=== PATIENT | female | born 1940 | race Two or more races ===

== ENCOUNTER 2017-11-21 17:21 | Inpatient (IN) | payer MEDICARE, OTHER, SELFPAY ==
[2017-11-21] VITALS (10 sets, daily range): BP systolic 123–176; BP diastolic 85–104; PULSE 66–86; RESP 16–19; TEMP 36.6; O2SAT 97–100; BMI 28.1; BMI 31.1
--- NOTE | 2017-11-21 17:30 | CT_ITS ---
STUDY: CT BRAIN WITHOUT CONTRAST REASON FOR EXAM: Female, 77 years old. CVA. Left arm face leg numbness. RADIATION DOSAGE (If Supplied By Facility): CTDIvol = ( 44.99 ) mGy, DLP = ( 745.49 ) mGycm TECHNIQUE: Transaxial CT imaging of the brain was performed without administration of intravenous contrast material. Individualized dose optimization techniques were used for this CT. COMPARISON: None. FINDINGS: Normal soft tissue structures. Normal calvarium. There is mild cerebral atrophy with widening of the extra-axial spaces and ventricular dilatation. There are areas of decreased attenuation within the white matter tracts of the supratentorial brain, consistent with microvascular disease changes. Normal basal ganglia and thalami. Normal brainstem. Normal cerebellum. There is no intracranial hemorrhage. There are no findings of an acute ischemic infarction. Normal visualized paranasal sinuses. CT/Brain/Head without Contrast IMPRESSION: Normal unenhanced CT scan of the brain. Dr. Robbins communicated results to Dr. Riley at 6:04 p.m. N.B. : The above information has been verbally conveyed by Annmarie Robbins MD to Marvin Culver on 11/21/2017 18:04:56 (ET). Electronically Signed: Annmarie Robbins MD at 18:05 EDT Tel , Service support ,
--- NOTE | 2017-11-21 17:30 | EKG12_ITS ---
Test Reason : NEURO Blood Pressure : / mmHG Vent. Rate : 069 BPM Atrial Rate : 069 BPM P-R Int : 154 ms QRS Dur : 082 ms QT Int : 408 ms P-R-T Axes : 008 -19 000 degrees QTc Int : 437 ms Normal sinus rhythm Cannot rule out Anterior infarct , age undetermined Abnormal ECG Confirmed by HENIRETTA GOMEZ, DONNIE ([id number]), magazine editor BEATRIZ JORDAN ([id number]) on 11/23/2017 3:29:52 PM Referred By: BRIANDA Confirmed By:DONNIE SHRESTHA MD
--- NOTE | 2017-11-21 17:32 | RAD_ITS ---
STUDY: X-RAY CHEST REASON FOR EXAM: Female, 77 years old. Headache, numbness. TECHNIQUE: Portable chest. COMPARISON: 03/22/2012. FINDINGS: The lungs are clear and expanded. There is no demonstrated pleural abnormality. There is mild cardiac enlargement. Normal mediastinum and camilo. Normal visualized pulmonary arteries. There is mild atherosclerotic calcification of the aorta. Normal visualized thoracic spine. Normal visualized ribs, clavicles, and shoulders. There is no demonstrated abnormality of the visualized soft tissue structures of the upper abdomen. RAD/Chest 1 View IMPRESSION: Mild cardiac enlargement. No acute process. Electronically Signed: Annmarie Robbins MD at 19:20 EDT Tel , Service support ,
[2017-11-21 17:39] LABS: Absolute Lymphocyte Count 2.05 X10^3/ul (0.83-4.51); Absolute Neutrophil Count 2.5 X10^3/uL (2.0-7.7); Basophil# 0.03 X10^3/uL; Basophil% 0.5 % (0-1); Eosinophil# 0.16 X10^3/uL; Eosinophils% 2.9 % (0-5); Hematocrit 37.1 % (37-47); Hemoglobin 12.3 g/dl (12.0-15.0); Lymphocyte # 2.05 X10^3/ul (4.0); Lymphocyte % 37.5 % (19-41); Mean Corp Hgb Conc 33.2 g/gl (32-36); Mean Corpuscular Hgb 29.4 pg (27.0-32.0); Mean Corpuscular Volume 88.5 fL (81-99); Mean Platelet Vol. 9.6 fl (6.2-12.0); Monocyte# 0.72 X10^3/uL; Monocyte% 13.2 % (0-10); Neutrophil % 45.9 % (47-70); Platelet Count 293 K/mm3 (150-450); RBC Distribution Width CV 13.2 % (11.6-14.6); Red Blood Count 4.19 M/mm3 (4.2-5.4); White Blood Count 5.5 K/mm3 (4.4-11.0)
[2017-11-21 17:45] LABS: Prothrombin Time (Protime)PT. 13.2 SECONDS (11.7-14.9)
[2017-11-21 17:46] LABS: Partial Thromboplast Time 31.2 Seconds (24.1-36.2)
[2017-11-21 17:48] LABS: POSITIVE COUNT NO; POSITIVE DIFFERENTIAL NO; POSITIVE MORPHOLOGY NO
[2017-11-21 17:54] LABS: Anion Gap 10 (5-15); BUN 15 mg/dL (7-18); BUN/Creat Ratio 22.7 RATIO (10-20); Calcium,Total 8.7 mg/dL (8.5-10.1); Chloride 99 mmol/L (98-107); Creatinine, Serum 0.66 mg/dL (0.55-1.02); EST Glomerular Filtration Rate 92 mL/min (>60); Est Glom Filt Rate - Afr Amer 112 mL/min (>60); Estimated Creatinine Clearance 44.58 ml/min; Glucose 109 mg/dL (74-106); Potassium 4.2 mmol/L (3.5-5.1); Sodium Level 135 mmol/L (136-145)
--- NOTE | 2017-11-21 18:50 | ED.DCSUM_ITS ---
- ER Visit Summary Date of Service: 11/21/17 Chief Complaint: Paresthesias History of Present Illness: The patient is a 77 F who presents with paresthesias that began initially 6 days ago. She states she has had some improvement but it worsened today. She complains of numbness of the left face arm and leg. She also developed a headache about an hour prior to presentation today. She took aspirin 1 hour before presentation. She did see her primary care physician 2 days ago and had blood work done and was scheduled for an outpatient MRI. She has not yet had this. She reports hyperlipidemia but no other stroke risk factors. Physical Examination: Initial blood pressure 149/90 vitals otherwise unremarkable Moist mucous membranes Heart regular rate and rhythm Lungs clear Abdomen soft Alert and oriented Patient reports decreased sensation of the left face arm and leg. She has weakness of the left leg. She has ataxia of the left arm. Test Results: EKG shows sinus rhythm. CT the head is normal. Chest x-ray is normal. CBC BMP coagulation studies and troponin unremarkable. Emergency Department Course and Treatment: I am concerned for stuttering TIA and stroke. I do believe the patient should undergo further evaluation. I spoke to neurology who felt that given waxing and waning symptoms that this was unlikely to be stroke. He also recommended having an MRI of the cervical spine done as an inpatient. I spoke to the hospitalist. Patient will be admitted. Treatment Plan: [] Disposition: Admit Impression: Stroke This note was generated with [employer] dictation software. It may contain incorrect words, spelling, and punctuation that were not noted in review of the chart prior to signing ED Disposition - Plan for ED Patient: Chief Complaint: Neuro S/Sx Referrals: Oscar Roberts MD [Primary Care Provider] -
--- NOTE | 2017-11-21 19:14 | CT_ITS ---
STUDY: CTA NECK WITH CONTRAST REASON FOR EXAM: Female, 77 years old. CVA. RADIATION DOSAGE (If Supplied By Facility): CTDIvol = ( 22.44 ) mGy, DLP = ( 726.22 ) mGycm TECHNIQUE: CT angiography with multi-detector data acquisition was performed from the aortic arch to the skull base following intravenous administration of 100 ml of Isovue 370 contrast. MIP images were reconstructed from the axial data set. Post-processing of the angiographic images was performed, with multiplanar reformation and 3D reconstruction. Individualized dose optimization techniques were used for this CT. COMPARISON: None. FINDINGS: AORTIC ARCH: Normal visualized aortic arch. Normal origins of the brachiocephalic and left common carotid arteries. There is a mild stenosis (less than 50%) of the proximal left subclavian artery. This is associated with mild atherosclerotic calcification. RIGHT CAROTID ARTERIES: Normal right common carotid artery (CCA). Normal right common carotid bulb. Normal origin of the right internal carotid (ICA) artery without a hemodynamically significant stenosis. There is tortuous elongation of the cervical portion of the right internal carotid artery. Normal origin of the right external carotid artery (ECA). LEFT CAROTID ARTERIES: Normal left common carotid artery (CCA). Normal left common carotid bulb. Normal origin of the left internal carotid (ICA) artery without a hemodynamically significant stenosis. There is tortuous elongation of the cervical portion of the left internal carotid artery. Normal origin of the left external carotid artery (ECA). VERTEBRAL ARTERIES: Normal bilateral vertebral arteries. CT/CTA Neck W/WO Contrast IMPRESSION: 1. Mild stenosis of the proximal left subclavian artery. 2. Marked tortuosity of the internal carotid arteries bilaterally. Carotid and vertebral arteries are otherwise unremarkable. Electronically Signed: Annmarie Robbins MD at 23:35 EDT Tel , Service support ,
--- NOTE | 2017-11-21 19:14 | CT_ITS ---
STUDY: CTA OF THE BRAIN REASON FOR EXAM: Female, 77 years old. CVA. RADIATION DOSAGE (If Supplied By Facility): CTDIvol = ( 22.44 ) mGy, DLP = ( 726.22 ) mGycm TECHNIQUE: CT angiography was performed with a multi-detector CT scanner. Data acquisition was obtained from the skull base through the vertex following intravenous administration of ml of . MIP images were reconstructed from the axial data set. Post-processing of the angiographic images was performed, with multiplanar reformation and 3D reconstruction. Individualized dose optimization techniques were used for this CT. COMPARISON: None. FINDINGS: Normal bilateral petrous carotid arteries. Normal right cavernous carotid artery with a normal supraclinoid bifurcation. Normal left cavernous carotid artery with a normal supraclinoid bifurcation. Normal right A1 segment of the anterior cerebral artery. Hypoplastic A1 segment of the left anterior cerebral artery. Normal intact anterior communicating artery (ACOM). Normal bilateral A2 segments of the anterior cerebral arteries. Normal right M1 and M2 segments of the middle cerebral arteries, with a normal M1 bifurcation. Normal left M1 and M2 segments of the middle cerebral arteries, with a normal M1 bifurcation. Normal right posterior communicating artery (PCOM). There is non-visualization of the left posterior communicating artery (PCOM). Normal bilateral vertebral arteries. Normal basilar artery with a normal basilar bifurcation. The visualized bilateral superior cerebellar (SCA) arteries are normal. Normal bilateral P1, P2 and visualized P3 segments of the posterior cerebral arteries. There is no demonstrated aneurysm of the [place] of [place]. CT/CTA Head W/WO Contrast IMPRESSION: Normal [place] of [place] without demonstrated aneurysm or significant stenosis. Electronically Signed: Annmarie Robbins MD at 21:40 EDT Tel , Service support ,
--- NOTE | 2017-11-21 19:20 | NURSING ---
Er hot car charger aware pt ok for floor at this time.
--- NOTE | 2017-11-21 19:25 | HP.PCM_ITS ---
Problem List (1) Dyslipidemia Status: Chronic (2) GERD (gastroesophageal reflux disease) Status: Chronic (3) Chronic degenerative joint disease Status: Chronic (4) Chronic allergic rhinitis Status: Chronic History of Present Illness Date of Admission: 11/21/17 Chief Complaint: Left-sided numbness and weakness The patient is a 77 year old F with history of chronic degenerative joint disease but no previous stroke came to ER with left-sided numbness and weakness started on Thursday afternoon. She also noticed weakness on the left side as she walked but she thought because of arthritis. She has weakness of left upper and lower extremity. She denies language abnormality, dysarthria, dysphagia, vision change but has headache mainly on left side. She denies chronic headache but occasionally sometimes get headache. In ED, blood pressure was elevated 166/86. Heart rate 80. normal sinus rhythm at 69 bpm on EKG. []Initial basic labs in the ED are acceptable, glucose 109. Troponin normal CT head normal. Chest x-ray shows mild cardiac enlargement but no acute process. Past Medical History Past Medical History (Chronic Problems): Chronic Problems Dyslipidemia (Chronic) GERD (gastroesophageal reflux disease) (Chronic) Chronic degenerative joint disease (Chronic) Chronic allergic rhinitis (Chronic) Allergies No Known Allergies Allergy (Verified 11/21/17 17:32) Home Medications: Ambulatory Orders Medication Instructions Recorded Celecoxib [Celebrex] 200 mg PO DAILY 11/21/17 Cetirizine HCl [Allergy Relief] 10 mg PO DAILY PRN PRN 11/21/17 Ergocalciferol (Vitamin D2) 50,000 unit PO MO 11/21/17 [Drisdol] Montelukast [Singulair] 10 mg PO QHS 11/21/17 Multivit-Min/Iron/Folic/Lutein 1 each PO DAILY 11/21/17 [Centrum Silver Women Tablet] Nystatin Powder [Mycostatin Powder] 1 applic TOPICAL BID 11/21/17 Omeprazole 40 mg PO DAILY 11/21/17 Silver Sulfadiazine 1% Crm 1 applic TOPICAL DAILY 11/21/17 [Silvadene (BKC)] Simvastatin [Zocor] 40 mg PO QHS 11/21/17 Ubidecarenone [Coenzyme Q10] 300 mg PO DAILY 11/21/17 Surgical History: total knee arthroplasty, Femure fracture Smoking Status: Never smoker VTE Information - Inpt Only VTE Present on Admission: No VTE Mechan Device Prophylaxis: SCD's VTE Pharm Prophylaxis ordered?: Yes Patient Problems: Active and Suspected Problems Stroke (Acute) - Physical Exam Vital Signs Temp Pulse Resp BP Pulse Ox 97.8 F 67 18 164/91 H 97 11/21/17 17:29 11/21/17 19:00 11/21/17 19:00 11/21/17 19:00 11/21/17 19:00 Oxygen Flow Rate (L/min) 2 Oxygen Delivery Method Nasal Cannula Weight: 130 lb 1.164 oz Body Mass Index (BMI) 28.1 Finger Stick Blood Glucose 125 Laboratory Tests Past 24 Hrs 11/21/17 11/21/17 11/21/17 17:30 17:30 17:30 WBC 5.5 RBC 4.19 L Hgb 12.3 Hct 37.1 MCV 88.5 MCH 29.4 MCHC 33.2 RDW 13.2 RDW Differential 42.0 Plt Count 293 MPV 9.6 Immature Gran % (Auto) 0.000 Neut % (Auto) 45.9 L Lymph % (Auto) 37.5 [place] % (Auto) 13.2 H Eos % (Auto) 2.9 Baso % (Auto) 0.5 Absolute Neuts (auto) 2.5 Absolute Lymphs (auto) 2.05 Total Counted Not Reportable PT 13.2 INR 1.0 APTT 31.2 Sodium 135 L Potassium 4.2 Chloride 99 Carbon Dioxide 26.0 Anion Gap 10 BUN 15 Creatinine 0.66 Estim Creat Clear Calc 44.58 Est GFR (MDRD) Af Amer 112 Est GFR (MDRD) Non-Af 92 BUN/Creatinine Ratio 22.7 H Glucose 109 H Calcium 8.7 Troponin I < 0.015 Assessment/Plan All Active Problems Stroke (Acute) The patient is a 77 year old F with history of chronic degenerative joint disease but no previous stroke came to ER with left-sided numbness and weakness started on Thursday afternoon. She also noticed weakness on the left side as she walked but she thought because of arthritis. She has weakness of left upper and lower extremity. She denies language abnormality, dysarthria, dysphagia, vision change but has headache mainly on left side. She denies chronic headache but occasionally sometimes get headache. In ED, blood pressure was elevated 166/86. Heart rate 80. normal sinus rhythm at 69 bpm on EKG. []Initial basic labs in the ED are acceptable, glucose 109. Troponin normal CT head normal. Chest x-ray shows mild cardiac enlargement but no acute process. 1. Possible acute/subacute stroke with history of cervical spine spondylosis: Patient is being admitted on PCU for to rule out a stroke. Stroke protocol being followed with MRI brain, CTA head and neck, 2D echo. Fasting profile and A1c tomorrow morning. MRI C-spine ordered. Neurology consulted. Blood pressure and glucose control as per stroke protocol. PT/OT and speech evaluation ordered. Patient had neck and spine injection by Dr. Mckeon for chronic neck pain in the past. 2. Subacute headache on left side: ESR and CRP ordered. On Tylenol. 3. Elevated blood pressure, possible hypertension: Blood pressure is elevated in ER as mentioned above. Currently, she is not on antihypertensive medication but is in the range of stroke protocol.. 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 Home medication reconciliation done. DVT prophylaxis: Heparin 5000 subcutaneous twice daily. Code Visit Inpatient E&M: 68137 Init Hosp L3
--- NOTE | 2017-11-21 19:34 | ECHOD_ITS ---
Reason For Study: TIA/CVA Procedure This was a 2D Doppler, Color Flow transthoracic echocardiogram. Exam performed portable in patient room. Left Ventricle Normal LV size. Left ventricular systolic function is normal. The estimated ejection fraction is 65 %. Stage 1 diastolic dysfunction. No regional wall motion abnormalities noted. Right Ventricle Normal RV size. Normal systolic function. Atria Normal left atrium. Normal right atrium. Mitral Valve Normal mitral valve. Mild (1+) eccentric mitral valve insufficiency. Tricuspid Valve Normal tricuspid valve. Mild tricuspid valve insufficiency. Pulmonary artery systolic pressure is 30 mmHg. Aortic Valve Normal aortic valve. Pulmonic Valve Normal pulmonic valve. Great Vessels Normal aortic root. The pulmonary artery is normal size. Normal inferior vena cava. Pericardium/Pleural No pericardial effusion. Medication Previously negative bubble study on echo (2012). MMode/2D Measurements & Calculations LVIDd: 3.5 cm IVSd: 1.2 cm Ao root diam: 3.4 cm LVIDs: 2.2 cm LVPWd: 1.2 cm LA dimension: 2.6 cm RVDd: 2.6 cm FS: 35.1 % LAV(MOD-bp): 32.0 ml LVAd ap4: 20.7 cm2 SV(MOD-sp4): 31.7 ml LAV(MOD-bp) Indexed: 20.5 ml/m2 EDV(MOD-sp4): 52.0 ml LAV(MOD-sp2): 37.9 ml EDV(sp4-el): 56.6 ml LAV(MOD-sp4): 24.3 ml LVAs ap4: 11.2 cm2 ESV(MOD-sp4): 20.2 ml ESV(sp4-el): 21.6 ml EF(MOD-sp4): 61.0 % EF(sp4-el): 61.9 % SV(sp4-el): 35.0 ml LA A4 area: 12.0 cm2 RA A4 area: 8.8 cm2 Time Measurements MV dec time: 0.27 sec Doppler Measurements & Calculations MV E max baldev: 60.8 cm/sec Lat Peak E' Baldev: 5.1 cm/sec Med Peak E' Baldev: 4.5 cm/sec MV A max baldev: 87.6 cm/sec E/E' lat: 11.9 E/E' med: 13.5 MV E/A: 0.69 Ao V2 max: 128.3 cm/sec LV V1 max: 92.3 cm/sec TR max baldev: 251.8 cm/sec Ao max P.6 mmHg LV V1 max P.4 mmHg TR max P.4 mmHg Interpretation Summary Normal LV size. Left ventricular systolic function is normal. The estimated ejection fraction is 65 %. Stage 1 diastolic dysfunction. Mild tricuspid valve insufficiency. Compared to prior study, there is no significant change. Ordering Physician: Yonatan Vargas Referring Physician: OCTAVIO PEÑALOZA Performed By: Odette Sky, SARA, RVT
[2017-11-21 19:48] LABS: CRP < 2.90 mg/L (0.0-3.0)
[2017-11-21 19:58] LABS: Erythrocyte Sedimentation Rate 25 mm/hr (0-30)
[2017-11-21 20:02] LABS: Thyroid Stim Hormone (TSH) 1.41 uIU/mL (0.358-3.74)
[2017-11-21] MEDS: Montelukast 10 MG Tablet PO (20:56)
[2017-11-21] MEDS: 0.9% Normal Saline 1,000 ML 100 ML IV (20:57)
[2017-11-21] MEDS: Atorvastatin Calcium 80 MG Tablet PO (20:57)
[2017-11-21] MEDS: Heparin Injection (Vial) 5,000 UNIT/ML VIAL 5000 UNIT SC (20:58)
[2017-11-21] MEDS: Nystatin Powder 15gm Bottle 1 APPLIC TOPICAL (21:01)
--- NOTE | 2017-11-21 21:02 | NURSING ---
PATIENT STATES TOOK 325MG OF ASPIRIN AT HOME THIS AFTERNOON.
[2017-11-22] VITALS (11 sets, daily range): BP systolic 127–138; BP diastolic 62–72; PULSE 68–85; RESP 16–18; TEMP 36.6–37.1; O2SAT 95–100; BMI 31.1
[2017-11-22] MEDS: 0.9% Normal Saline 1,000 ML 100 ML IV ×2 (06:16→17:22)
[2017-11-22 06:26] LABS: Bedside Glucose 92 mg/dL (70-110)
[2017-11-22 06:37] LABS: Anion Gap 10 (5-15); BUN 13 mg/dL (7-18); BUN/Creat Ratio 22.5 RATIO (10-20); Calcium,Total 8.1 mg/dL (8.5-10.1); Chloride 103 mmol/L (98-107); Cholesterol 116 mg/dL (200); Creatinine, Serum 0.58 mg/dL (0.55-1.02); EST Glomerular Filtration Rate 108 mL/min (>60); Est Glom Filt Rate - Afr Amer 131 mL/min (>60); Estimated Creatinine Clearance 49.34 ml/min; Glucose 96 mg/dL (74-106); High Density Lipoprotein 41 mg/dL; Potassium 4.1 mmol/L (3.5-5.1); Sodium Level 137 mmol/L (136-145); Triglycerides 60 mg/dL; Very Low Density Lipoprotein 12 mg/dL (5-40)
[2017-11-22 07:13] LABS: Hemoglobin A1c 5.9 % (4.2-6.3)
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
[2017-11-22] MEDS: Heparin Injection (Vial) 5,000 UNIT/ML VIAL 5000 UNIT SC ×2 (11:13→21:13)
[2017-11-22] MEDS: Nystatin Powder 15gm Bottle 1 APPLIC TOPICAL ×2 (11:14→21:12)
[2017-11-22] MEDS: Aspirin 325 MG Tablet PO (11:14)
[2017-11-22] MEDS: Multivitamins,Ther W-Minerals Tablet 1 TABLET PO (11:14)
[2017-11-22] MEDS: Pantoprazole Sodium 40 MG Tablet PO (11:14)
[2017-11-22 11:46] LABS: Bedside Glucose 108 mg/dL (70-110)
--- NOTE | 2017-11-22 16:25 | PCM.PN.HOSP ---
Patient Problems: Active and Suspected Problems Stroke (Acute) Subjective: The patient was seen in the morning about 7:30 a.m. Patient has improvement in the left upper extremity strength. 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 Vitals/I&O's: Vital Signs Temp Pulse Resp BP Pulse Ox 97.9 F 73 16 135/66 H 100 11/22/17 12:00 11/22/17 12:00 11/22/17 12:00 11/22/17 12:00 11/22/17 12:00 Oxygen Flow Rate (L/min) 2 Oxygen Delivery Method Room Air Weight: 143 lb 15.39 oz Body Mass Index (BMI) 31.1 Intake and Output for Last 24 Hours 11/20/17 11/21/17 11/22/17 23:59 23:59 23:59 Intake Total 1964 Balance 1964 General: Alert, Oriented x3, Cooperative HEENT: Atraumatic, PERRLA, EOMI, Normocephalic Neck: Supple, No JVD, Negative Carotid Bruits Lungs: Clear to auscultation, Normal air movement Cardiovascular: Regular rate, Regular Rhythm, Normal S1, Normal S2, No murmurs Abdomen: Bowel Sounds Present, Soft, Non Tender, Non-Distended Extremities: No edema, Capillary Refill Less than 3 Seconds Skin: No rashes, No breakdown Musculoskeletal: No Tenderness to Palpation of Joints or Extremities, Arthritic Changes Neurological: Cranial nerves II-XII grossly intact, - - Muscle strength: No pronator drift of left upper extremity which is improved. Left lower extremity still mild week and drifts down but does not take bed. Decreased sensation in left upper and lower extremity and face. Psych/Mental Status: Normal Affect, Appropriate Laboratory Results 11/21/17 20:30: Troponin I < 0.015 11/22/17 00:00: Troponin I < 0.015 11/22/17 05:21: Sodium 137, Potassium 4.1, Chloride 103, Carbon Dioxide 24.0, Anion Gap 10, BUN 13, Creatinine 0.58, Estim Creat Clear Calc 49.34, Est GFR (MDRD) Af Amer 131, Est GFR (MDRD) Non-Af 108, BUN/Creatinine Ratio 22.5 H, Glucose 96, Calcium 8.1 L, Triglycerides 60, Cholesterol 116, LDL Cholesterol 63, VLDL Cholesterol 12, HDL Cholesterol 41 11/22/17 05:21: Hemoglobin A1c 5.9 11/22/17 06:18: POC Glucose 92 11/22/17 11:35: POC Glucose 108 Current Medications Aspirin (Aspirin, Baby) 81 mg PO DAILY@0800 [facility] Atorvastatin Calcium (Lipitor) 80 mg PO QHS [facility] Last Admin: 11/21/17 20:57 Dose: 80 mg Clopidogrel Bisulfate (Plavix) 75 mg PO DAILY [facility] Ergocalciferol (Vitamin D) 50,000 unit PO QWEEK [facility] Heparin Sodium (Porcine) (Heparin Na) 5,000 unit SC BID [facility] Last Admin: 11/22/17 11:13 Dose: 5,000 unit Sodium Chloride () 1,000 mls @ 100 mls/hr IV .Q10H [facility] Last Admin: 11/22/17 06:16 Dose: 100 mls/hr Ibuprofen (Motrin) 600 mg PO Q8H PRN PRN PRN Reason: MILD PAIN (-10) Labetalol HCl (Trandate) 10 mg IV Q10M PRN PRN Reason: MAINTAIN SBP GOALS Stop: 11/22/17 19:35 Loratadine (Claritin) 10 mg PO DAILY PRN PRN PRN Reason: ALLERGIES Montelukast Sodium (Singulair) 10 mg PO QHS [facility] Last Admin: 11/21/17 20:56 Dose: 10 mg Multivitamins/Minerals (Multivitamin With Minerals) 1 tablet PO DAILY@0800 [facility] Last Admin: 11/22/17 11:14 Dose: 1 tablet Nystatin (Mycostatin Powder) 1 applic TOPICAL BID [facility] PRN Reason: Protocol Last Admin: 11/22/17 11:14 Dose: 1 appful Pantoprazole Sodium (Protonix) 40 mg PO DAILY [facility] Last Admin: 11/22/17 11:14 Dose: 40 mg Sodium Chloride () 5 - 30 ml IV UD PRN PRN Reason: SALINE FLUSH Medical Necessity - Tobacco Use Smoking Status: Never smoker Assessment/Plan All Active Problems Stroke (Acute) The patient is a 77 year old F with history of chronic degenerative joint disease but no previous stroke came to ER with left-sided numbness and weakness started on Thursday afternoon. She also noticed weakness on the left side as she walked but she thought because of arthritis. She has weakness of left upper and lower extremity. She denies language abnormality, dysarthria, dysphagia,vision change but has headache mainly on left side. She denies chronic headache but occasionally sometimes get headache. In ED, blood pressure was elevated 166/86. Heart rate 80. normal sinus rhythm at 69 bpm on EKG. []Initial basic labs in the ED are acceptable, glucose 109. Troponin normal CT head normal. Chest x-ray shows mild cardiac enlargement but no acute process. 1. Right thalamic acute ischemic stroke: Patient is being admitted on PCU for to rule out a stroke. Stroke protocol being followed with MRI brain, CTA head and neck, echo. MRI brain shows acute right thalamic stroke. CTA of head and neck shows mild less than 50% proximal left subclavian stenosis. Carotid and vertebral arteries are otherwise unremarkable. CTA head shows normal [place] without demonstrated aneurysm or significant stenosis. Neurology consulted. Discussed with her Dr. Cabral. Recommended full workup including 2D echo. 30 day event monitor. A1c 5.9. Blood pressure and glucose control as per stroke protocol. PT/OT and speech evaluation ordered. Lipid profile within normal limit, LDL 116, triglycerides 60, HDL 41. Continue atorvastatin 80 mg daily. On aspirin 81 mg daily and Plavix 75 mg daily. The CTA and MRI findings discussed with the patient. 2. Subacute headache on left side: ESR and CRP normal. On Tylenol. 3. Elevated blood pressure, possible hypertension: Blood pressure is elevated in ER as mentioned above. Currently, she is not on antihypertensive medication but is in the range of stroke protocol.. 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 Home medication reconciliation done. DVT prophylaxis: Heparin 5000 subcutaneous twice daily. Laboratory Results 11/21/17 17:30: WBC 5.5, RBC 4.19 L, Hgb 12.3, Hct 37.1, MCV 88.5, MCH 29.4, MCHC 33.2, RDW 13.2, RDW Differential 42.0, Plt Count 293, MPV 9.6, Immature Gran % (Auto) 0.000, Neut % (Auto) 45.9 L, Lymph % (Auto) 37.5, [place] % (Auto) 13.2 H, Eos % (Auto) 2.9, Baso % (Auto) 0.5, Absolute Neuts (auto) 2.5, Absolute Lymphs (auto) 2.05, Total Counted Not Reportable 11/21/17 17:30: PT 13.2, INR 1.0, APTT 31.2 11/21/17 17:30: Sodium 135 L, Potassium 4.2, Chloride 99, Carbon Dioxide 26.0, Anion Gap 10, BUN 15, Creatinine 0.66, Estim Creat Clear Calc 44.58, Est GFR (MDRD) Af Amer 112, Est GFR (MDRD) Non-Af 92, BUN/Creatinine Ratio 22.7 H, Glucose 109 H, Calcium 8.7, Troponin I < 0.015 11/21/17 17:30: ESR 25 11/21/17 17:30: C-React Prot Ext Range < 2.90 11/21/17 17:30: TSH 1.41 11/21/17 17:30: Vitamin B12 Pending, Vitamin D 25-Hydroxy Pending 11/21/17 20:30: Troponin I < 0.015 11/22/17 00:00: Troponin I < 0.015 11/22/17 05:21: Sodium 137, Potassium 4.1, Chloride 103, Carbon Dioxide 24.0, Anion Gap 10, BUN 13, Creatinine 0.58, Estim Creat Clear Calc 49.34, Est GFR (MDRD) Af Amer 131, Est GFR (MDRD) Non-Af 108, BUN/Creatinine Ratio 22.5 H, Glucose 96, Calcium 8.1 L, Triglycerides 60, Cholesterol 116, LDL Cholesterol 63, VLDL Cholesterol 12, HDL Cholesterol 41 11/22/17 05:21: Hemoglobin A1c 5.9 11/22/17 06:18: POC Glucose 92 11/22/17 11:35: POC Glucose 108 Code Visit Inpatient E&M: 14967 Subs Hosp L3
--- NOTE | 2017-11-22 16:32 | PN_ITS ---
Patient Problems: Active and Suspected Problems Stroke (Acute) Subjective: The patient was seen in the morning about 7:30 a.m. Patient has improvement in the left upper extremity strength. 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 Vitals/I&O's: Vital Signs Temp Pulse Resp BP Pulse Ox 97.9 F 73 16 135/66 H 100 11/22/17 12:00 11/22/17 12:00 11/22/17 12:00 11/22/17 12:00 11/22/17 12:00 Oxygen Flow Rate (L/min) 2 Oxygen Delivery Method Room Air Weight: 143 lb 15.39 oz Body Mass Index (BMI) 31.1 Intake and Output for Last 24 Hours 11/20/17 11/21/17 11/22/17 23:59 23:59 23:59 Intake Total 1964 Balance 1964 General: Alert, Oriented x3, Cooperative HEENT: Atraumatic, PERRLA, EOMI, Normocephalic Neck: Supple, No JVD, Negative Carotid Bruits Lungs: Clear to auscultation, Normal air movement Cardiovascular: Regular rate, Regular Rhythm, Normal S1, Normal S2, No murmurs Abdomen: Bowel Sounds Present, Soft, Non Tender, Non-Distended Extremities: No edema, Capillary Refill Less than 3 Seconds Skin: No rashes, No breakdown Musculoskeletal: No Tenderness to Palpation of Joints or Extremities, Arthritic Changes Neurological: Cranial nerves II-XII grossly intact, - - Muscle strength: No pronator drift of left upper extremity which is improved. Left lower extremity still mild week and drifts down but does not take bed. Decreased sensation in left upper and lower extremity and face. Psych/Mental Status: Normal Affect, Appropriate Laboratory Results 11/21/17 20:30: Troponin I < 0.015 11/22/17 00:00: Troponin I < 0.015 11/22/17 05:21: Sodium 137, Potassium 4.1, Chloride 103, Carbon Dioxide 24.0, Anion Gap 10, BUN 13, Creatinine 0.58, Estim Creat Clear Calc 49.34, Est GFR ( MDRD) Af Amer 131, Est GFR (MDRD) Non-Af 108, BUN/Creatinine Ratio 22.5 H, Glucose 96, Calcium 8.1 L, Triglycerides 60, Cholesterol 116, LDL Cholesterol 63 , VLDL Cholesterol 12, HDL Cholesterol 41 11/22/17 05:21: Hemoglobin A1c 5.9 11/22/17 06:18: POC Glucose 92 11/22/17 11:35: POC Glucose 108 Current Medications Aspirin (Aspirin, Baby) 81 mg PO DAILY@0800 [facility] Atorvastatin Calcium (Lipitor) 80 mg PO QHS [facility] Last Admin: 11/21/17 20:57 Dose: 80 mg Clopidogrel Bisulfate (Plavix) 75 mg PO DAILY [facility] Ergocalciferol (Vitamin D) 50,000 unit PO QWEEK [facility] Heparin Sodium (Porcine) (Heparin Na) 5,000 unit SC BID [facility] Last Admin: 11/22/17 11:13 Dose: 5,000 unit Sodium Chloride () 1,000 mls @ 100 mls/hr IV .Q10H [facility] Last Admin: 11/22/17 06:16 Dose: 100 mls/hr Ibuprofen (Motrin) 600 mg PO Q8H PRN PRN PRN Reason: MILD PAIN (-10) Labetalol HCl (Trandate) 10 mg IV Q10M PRN PRN Reason: MAINTAIN SBP GOALS Stop: 11/22/17 19:35 Loratadine (Claritin) 10 mg PO DAILY PRN PRN PRN Reason: ALLERGIES Montelukast Sodium (Singulair) 10 mg PO QHS [facility] Last Admin: 11/21/17 20:56 Dose: 10 mg Multivitamins/Minerals (Multivitamin With Minerals) 1 tablet PO DAILY@0800 [facility] Last Admin: 11/22/17 11:14 Dose: 1 tablet Nystatin (Mycostatin Powder) 1 applic TOPICAL BID [facility] PRN Reason: Protocol Last Admin: 11/22/17 11:14 Dose: 1 appful Pantoprazole Sodium (Protonix) 40 mg PO DAILY [facility] Last Admin: 11/22/17 11:14 Dose: 40 mg Sodium Chloride () 5 - 30 ml IV UD PRN PRN Reason: SALINE FLUSH Medical Necessity - Tobacco Use Smoking Status: Never smoker Assessment/Plan All Active Problems Stroke (Acute) The patient is a 77 year old F with history of chronic degenerative joint disease but no previous stroke came to ER with left-sided numbness and weakness started on Thursday afternoon. She also noticed weakness on the left side as she walked but she thought because of arthritis. She has weakness of left upper and lower extremity. She denies language abnormality, dysarthria, dysphagia, vision change but has headache mainly on left side. She denies chronic headache but occasionally sometimes get headache. In ED, blood pressure was elevated 166/86. Heart rate 80. normal sinus rhythm at 69 bpm on EKG. []Initial basic labs in the ED are acceptable, glucose 109. Troponin normal CT head normal. Chest x-ray shows mild cardiac enlargement but no acute process. 1. Right thalamic acute ischemic stroke: Patient is being admitted on PCU for to rule out a stroke. Stroke protocol being followed with MRI brain, CTA head and neck, echo. MRI brain shows acute right thalamic stroke. CTA of head and neck shows mild less than 50% proximal left subclavian stenosis. Carotid and vertebral arteries are otherwise unremarkable. CTA head shows normal [place] without demonstrated aneurysm or significant stenosis. Neurology consulted. Discussed with her Dr. Cabral. Recommended full workup including 2D echo. 30 day event monitor. A1c 5.9. Blood pressure and glucose control as per stroke protocol. PT/OT and speech evaluation ordered. Lipid profile within normal limit, LDL 116, triglycerides 60, HDL 41. Continue atorvastatin 80 mg daily. On aspirin 81 mg daily and Plavix 75 mg daily. The CTA and MRI findings discussed with the patient. 2. Subacute headache on left side: ESR and CRP normal. On Tylenol. 3. Elevated blood pressure, possible hypertension: Blood pressure is elevated in ER as mentioned above. Currently, she is not on antihypertensive medication but is in the range of stroke protocol.. 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 Home medication reconciliation done. DVT prophylaxis: Heparin 5000 subcutaneous twice daily. Laboratory Results 11/21/17 17:30: WBC 5.5, RBC 4.19 L, Hgb 12.3, Hct 37.1, MCV 88.5, MCH 29.4, MCHC 33.2, RDW 13.2, RDW Differential 42.0, Plt Count 293, MPV 9.6, Immature Gran % (Auto) 0.000, Neut % (Auto) 45.9 L, Lymph % (Auto) 37.5, [place] % (Auto) 13.2 H, Eos % (Auto) 2.9, Baso % (Auto) 0.5, Absolute Neuts (auto) 2.5, Absolute Lymphs (auto) 2.05, Total Counted Not Reportable 11/21/17 17:30: PT 13.2, INR 1.0, APTT 31.2 11/21/17 17:30: Sodium 135 L, Potassium 4.2, Chloride 99, Carbon Dioxide 26.0, Anion Gap 10, BUN 15, Creatinine 0.66, Estim Creat Clear Calc 44.58, Est GFR ( MDRD) Af Amer 112, Est GFR (MDRD) Non-Af 92, BUN/Creatinine Ratio 22.7 H, Glucose 109 H, Calcium 8.7, Troponin I < 0.015 11/21/17 17:30: ESR 25 11/21/17 17:30: C-React Prot Ext Range < 2.90 11/21/17 17:30: TSH 1.41 11/21/17 17:30: Vitamin B12 Pending, Vitamin D 25-Hydroxy Pending 11/21/17 20:30: Troponin I < 0.015 11/22/17 00:00: Troponin I < 0.015 11/22/17 05:21: Sodium 137, Potassium 4.1, Chloride 103, Carbon Dioxide 24.0, Anion Gap 10, BUN 13, Creatinine 0.58, Estim Creat Clear Calc 49.34, Est GFR ( MDRD) Af Amer 131, Est GFR (MDRD) Non-Af 108, BUN/Creatinine Ratio 22.5 H, Glucose 96, Calcium 8.1 L, Triglycerides 60, Cholesterol 116, LDL Cholesterol 63 , VLDL Cholesterol 12, HDL Cholesterol 41 11/22/17 05:21: Hemoglobin A1c 5.9 11/22/17 06:18: POC Glucose 92 11/22/17 11:35: POC Glucose 108 Code Visit Inpatient E&M: 03490 Subs Hosp L3
[2017-11-22] MEDS: Ibuprofen 600 MG Tablet PO (17:34)
--- NOTE | 2017-11-22 19:14 | MRI_ITS ---
STUDY: MRI CERVICAL SPINE WITHOUT CONTRAST REASON FOR EXAM: Female, 77 years old. Left-sided face, arm and leg numbness. TECHNIQUE: Standardized fat and water weighted pulse sequences were obtained in the sagittal and axial planes. Multiple images are limited by patient motion. COMPARISON: Prior comparison studies are not available for review at this time. FINDINGS: Normal foramen magnum and brainstem-cervical cord junction. Normal craniovertebral junction. There are degenerative changes of the anterior atlantoaxial articulation. Normal odontoid process. Normal cervical lordosis. There appears to be decreased height of several of the cervical vertebral bodies, notably at C4, C5, C6 and C7. This may be the result of old compression fractures or developmental variant. Remaining imaged thoracic and cervical vertebral bodies normal height and alignment. C2-3: Axial images are nondiagnostic. C3-4: Axial images are nondiagnostic. C4-5: Axial images are nondiagnostic. C5-6: Axial images are nondiagnostic. C6-7: Axial images are nondiagnostic. C7-T1: Normal endplates. Normal disc height, signal and morphology. Normal central canal and intervertebral neural foramina. There is limited visualization of the cervical spinal cord secondary to patient motion. Normal visualized soft tissue structures. MRI/Spine Cervical (Routine) IMPRESSION: Technically limited MRI due to patient motion. Electronically Signed: Laura Tena MD at 12:01 EDT , Service support ,
--- NOTE | 2017-11-22 19:34 | MRI_ITS ---
STUDY: MRI BRAIN WITHOUT CONTRAST REASON FOR EXAM: Female, 77 years old. Left-sided arm, face and leg numbness off and on for one week. TECHNIQUE: Standardized multiplanar fat and water weighted pulse sequences were obtained. Multiple images are limited by patient motion. COMPARISON: CT of the head dated November 21, 2017. FINDINGS: Normal size of the ventricles and extra-axial spaces for the patient's age. There are a limited number of small white matter hyperintensities, distributed throughout the deep white matter tracts of the cerebral hemispheres, consistent with mild chronic white matter ischemic changes. There is restricted diffusion in the posterior right thalamus consistent with acute infarct. There is a focus of susceptibility artifact in the right parietal lobe on the gradient echo images. This may represent small focus of petechial hemorrhage or calcification. Normal bilateral basal ganglia. Left thalamus has a normal appearance. There is no extra-axial fluid accumulation. Normal flow voids within the major intracranial circulation suggesting patency by spin echo criteria. There is tortuosity of the vertebrobasilar arteries. Normal sella turcica, pituitary gland, infundibular stalk, optic chiasm and hypothalamus. Normal tectal plate and pineal gland. Normal midbrain, irvin and medulla. There are mild involutional changes of the cerebellum. There are large basal cisterns. Normal bilateral temporal bones. Normal bilateral internal auditory canals. There are bilateral ocular lens implants with otherwise normal intraorbital contents. Normal visualized paranasal sinuses. There is mild deviation of nasal septum towards the right. Normal calvarium and skull base. Normal visualized soft tissue structures. There is decreased height of the C4, C5 and C6 vertebral bodies, possibly related to old compression fractures or developmental variant. MRI/Brain without Contrast IMPRESSION: 1. Involutional changes of the brain, as described above. 2. Technically limited MRI due to patient motion. 3. Acute right thalamic infarct. N.B. : The above information has been verbally conveyed by Laura Tena MD to Marvin Cole on 11/22/2017 10:56:50 (ET). Electronically Signed: Laura Tena MD at 10:50 EDT , Service support ,
[2017-11-22] MEDS: Atorvastatin Calcium 80 MG Tablet PO (21:13)
[2017-11-22] MEDS: Montelukast 10 MG Tablet PO (21:13)
[2017-11-23] VITALS (16 sets, daily range): BP systolic 121–157; BP diastolic 65–90; PULSE 68–77; RESP 16–18; TEMP 36.4–37.2; O2SAT 94–97; BMI 31.1
[2017-11-23] MEDS: Aspirin 81 MG TAB.CHEW PO (07:41)
[2017-11-23] MEDS: Multivitamins,Ther W-Minerals Tablet 1 TABLET PO (07:41)
[2017-11-23] MEDS: Pantoprazole Sodium 40 MG Tablet PO (07:41)
[2017-11-23 09:00] LABS: Vitamin B12 338 pg/mL (211-911)
[2017-11-23] MEDS: Clopidogrel Bisulfate 75 MG Tablet PO (09:36)
[2017-11-23] MEDS: Nystatin Powder 15gm Bottle 1 APPLIC TOPICAL ×2 (09:36→22:05)
[2017-11-23] MEDS: Heparin Injection (Vial) 5,000 UNIT/ML VIAL 5000 UNIT SC ×2 (09:37→22:04)
[2017-11-23] MEDS: Ibuprofen 600 MG Tablet PO ×2 (09:43→18:08)
--- NOTE | 2017-11-23 12:25 | CASEMGMT ---
Face to Face with patient for initial transition planning/care coordination assessment. RN MARY introduced self and role at [facility], pt voices understanding and consents to assessment at this time. Pt is sitting up in chair eating lunch, in no distress at this time. Pt is A/O x4 at this time and answers all questions appropriately at this time. Care providers, pharmacy, and demographics verified. See attached link. Pt voices no further concerns/needs at this time. Advised pt to ask for CM if any further questions/concerns/needs arise, voices understanding. CM to follow for PT notes. PLAN: Home w/ OP therapy. S[place]en OLYA HERNANDEZ
--- NOTE | 2017-11-23 13:30 | PCM.PN.HOSP ---
Patient Problems: Active and Suspected Problems Stroke (Acute) Subjective: Patient was seen and examined. Denied any new complains. No acute events on telemetry. Vitals/I&O's: Vital Signs Temp Pulse Resp BP Pulse Ox 97.6 F L 74 16 152/79 H 96 11/23/17 12:32 11/23/17 12:32 11/23/17 12:32 11/23/17 12:32 11/23/17 12:32 Oxygen Delivery Method Room Air General: Alert, Oriented x3, Cooperative, No apparent distress HEENT: Atraumatic, PERRLA, EOMI, Normocephalic Oral: Moist Mucosa Neck: Supple, No JVD, Negative Carotid Bruits Lungs: Clear to auscultation, Normal air movement Cardiovascular: Regular rate, No murmurs Abdomen: Bowel Sounds Present, Soft, Non Tender Extremities: No edema, Capillary Refill Less than 3 Seconds Skin: No rashes, No breakdown Musculoskeletal: No Tenderness to Palpation of Joints or Extremities Neurological: Cranial nerves II-XII grossly intact, Motor Exam 5/5 strength throughout - except in left UE/LE, numbness of left face Psych/Mental Status: Normal Affect, Appropriate Current Medications Aspirin (Aspirin, Baby) 81 mg PO DAILY@0800 [facility] Last Admin: 11/23/17 07:41 Dose: 81 mg Atorvastatin Calcium (Lipitor) 80 mg PO QHS [facility] Last Admin: 11/22/17 21:13 Dose: 80 mg Clopidogrel Bisulfate (Plavix) 75 mg PO DAILY [facility] Last Admin: 11/23/17 09:36 Dose: 75 mg Ergocalciferol (Vitamin D) 50,000 unit PO QWEEK [facility] Last Admin: 11/23/17 09:36 Dose: 50,000 unit Heparin Sodium (Porcine) (Heparin Na) 5,000 unit SC BID [facility] Last Admin: 11/23/17 09:37 Dose: 5,000 unit Ibuprofen (Motrin) 600 mg PO Q8H PRN PRN PRN Reason: MILD PAIN (1-3/10) Last Admin: 11/23/17 09:43 Dose: 600 mg Loratadine (Claritin) 10 mg PO DAILY PRN PRN PRN Reason: ALLERGIES Montelukast Sodium (Singulair) 10 mg PO QHS [facility] Last Admin: 11/22/17 21:13 Dose: 10 mg Multivitamins/Minerals (Multivitamin With Minerals) 1 tablet PO DAILY@0800 [facility] Last Admin: 11/23/17 07:41 Dose: 1 tablet Nystatin (Mycostatin Powder) 1 applic TOPICAL BID [facility] PRN Reason: Protocol Last Admin: 11/23/17 09:36 Dose: 1 appful Pantoprazole Sodium (Protonix) 40 mg PO DAILY [facility] Last Admin: 11/23/17 07:41 Dose: 40 mg Sodium Chloride () 5 - 30 ml IV UD PRN PRN Reason: SALINE FLUSH Medical Necessity - Tobacco Use Smoking Status: Never smoker Assessment/Plan All Active Problems Stroke (Acute) 1. Acute Right thalamic acute ischemic stroke, no acute events on telemetry, 2d-echo is pending, 30 day event monitor planned, on aspirin, plavix and statin. 2. Debility secondary to acute thalamic stroke, patient seen and PT/OT and will need wheeled walker at home, prescription signed. 3. Hypertension, fluctuating, will start patient on Lisinopril, will monitor BMP 4. Hyperlipidemia, on statin 5. Arthritis, generalised, on NSAIDS 6. DVT PPx- Heparin SC Code Visit Inpatient E&M: 28337 Subs Hosp L2
--- NOTE | 2017-11-23 13:39 | PN_ITS ---
Patient Problems: Active and Suspected Problems Stroke (Acute) Subjective: Patient was seen and examined. Denied any new complains. No acute events on telemetry. Vitals/I&O's: Vital Signs Temp Pulse Resp BP Pulse Ox 97.6 F L 74 16 152/79 H 96 11/23/17 12:32 11/23/17 12:32 11/23/17 12:32 11/23/17 12:32 11/23/17 12:32 Oxygen Delivery Method Room Air General: Alert, Oriented x3, Cooperative, No apparent distress HEENT: Atraumatic, PERRLA, EOMI, Normocephalic Oral: Moist Mucosa Neck: Supple, No JVD, Negative Carotid Bruits Lungs: Clear to auscultation, Normal air movement Cardiovascular: Regular rate, No murmurs Abdomen: Bowel Sounds Present, Soft, Non Tender Extremities: No edema, Capillary Refill Less than 3 Seconds Skin: No rashes, No breakdown Musculoskeletal: No Tenderness to Palpation of Joints or Extremities Neurological: Cranial nerves II-XII grossly intact, Motor Exam 5/5 strength throughout - except in left UE/LE, numbness of left face Psych/Mental Status: Normal Affect, Appropriate Current Medications Aspirin (Aspirin, Baby) 81 mg PO DAILY@0800 [facility] Last Admin: 11/23/17 07:41 Dose: 81 mg Atorvastatin Calcium (Lipitor) 80 mg PO QHS [facility] Last Admin: 11/22/17 21:13 Dose: 80 mg Clopidogrel Bisulfate (Plavix) 75 mg PO DAILY [facility] Last Admin: 11/23/17 09:36 Dose: 75 mg Ergocalciferol (Vitamin D) 50,000 unit PO QWEEK [facility] Last Admin: 11/23/17 09:36 Dose: 50,000 unit Heparin Sodium (Porcine) (Heparin Na) 5,000 unit SC BID [facility] Last Admin: 11/23/17 09:37 Dose: 5,000 unit Ibuprofen (Motrin) 600 mg PO Q8H PRN PRN PRN Reason: MILD PAIN (1-3/10) Last Admin: 11/23/17 09:43 Dose: 600 mg Loratadine (Claritin) 10 mg PO DAILY PRN PRN PRN Reason: ALLERGIES Montelukast Sodium (Singulair) 10 mg PO QHS [facility] Last Admin: 11/22/17 21:13 Dose: 10 mg Multivitamins/Minerals (Multivitamin With Minerals) 1 tablet PO DAILY@0800 [facility] Last Admin: 11/23/17 07:41 Dose: 1 tablet Nystatin (Mycostatin Powder) 1 applic TOPICAL BID [facility] PRN Reason: Protocol Last Admin: 11/23/17 09:36 Dose: 1 appful Pantoprazole Sodium (Protonix) 40 mg PO DAILY [facility] Last Admin: 11/23/17 07:41 Dose: 40 mg Sodium Chloride () 5 - 30 ml IV UD PRN PRN Reason: SALINE FLUSH Medical Necessity - Tobacco Use Smoking Status: Never smoker Assessment/Plan All Active Problems Stroke (Acute) 1. Acute Right thalamic acute ischemic stroke, no acute events on telemetry, 2d -echo is pending, 30 day event monitor planned, on aspirin, plavix and statin. 2. Debility secondary to acute thalamic stroke, patient seen and PT/OT and will need wheeled walker at home, prescription signed. 3. Hypertension, fluctuating, will start patient on Lisinopril, will monitor BMP 4. Hyperlipidemia, on statin 5. Arthritis, generalised, on NSAIDS 6. DVT PPx- Heparin SC Code Visit Inpatient E&M: 05056 Subs Hosp L2
[2017-11-23] MEDS: Montelukast 10 MG Tablet PO (22:05)
[2017-11-23] MEDS: Atorvastatin Calcium 80 MG Tablet PO (22:07)
[2017-11-24] VITALS: BP 109/59; PULSE 80; RESP 16; TEMP 36.8; O2SAT 95
[2017-11-24 03:00] VITALS: PULSE 85
[2017-11-24 04:00] VITALS: BP 151/77; PULSE 78; RESP 16; TEMP 37.1; O2SAT 97
[2017-11-24 06:21] LABS: Absolute Lymphocyte Count 1.48 X10^3/ul (0.83-4.51); Absolute Neutrophil Count 2.8 X10^3/uL (2.0-7.7); Basophil# 0.02 X10^3/uL; Basophil% 0.4 % (0-1); Eosinophil# 0.21 X10^3/uL; Eosinophils% 4.1 % (0-5); Hemoglobin 12.3 g/dl (12.0-15.0); Lymphocyte # 1.48 X10^3/ul (4.0); Mean Corp Hgb Conc 33.2 g/gl (32-36); Mean Corpuscular Hgb 29.6 pg (27.0-32.0); Mean Corpuscular Volume 89.2 fL (81-99); Monocyte# 0.63 X10^3/uL; Monocyte% 12.3 % (0-10); Neutrophil # 2.76 X10^3/uL (2.7-7.7); Platelet Count 312 K/mm3 (150-450); RBC Distribution Width CV 12.8 % (11.6-14.6); RBC Distribution Width SD 41.6 fl (35.1-43.9); Red Blood Count 4.15 M/mm3 (4.2-5.4); White Blood Count 5.1 K/mm3 (4.4-11.0)
[2017-11-24 06:23] LABS: POSITIVE COUNT NO; POSITIVE DIFFERENTIAL NO; POSITIVE MORPHOLOGY NO
[2017-11-24 06:50] LABS: Anion Gap 11 (5-15); BUN 12 mg/dL (7-18); Calcium,Total 8.4 mg/dL (8.5-10.1); Chloride 99 mmol/L (98-107); Creatinine, Serum 0.57 mg/dL (0.55-1.02); EST Glomerular Filtration Rate 109 mL/min (>60); Est Glom Filt Rate - Afr Amer 132 mL/min (>60); Estimated Creatinine Clearance 49.34 ml/min; Glucose 95 mg/dL (74-106); Potassium 3.9 mmol/L (3.5-5.1); Sodium Level 136 mmol/L (136-145)
[2017-11-24 06:57] VITALS: PULSE 96
[2017-11-24 07:25] LABS: Bedside Glucose 125 mg/dL (70-110)
[2017-11-24 08:00] VITALS: BP 128/75; PULSE 75; RESP 16; TEMP 36.6; O2SAT 96
[2017-11-24] MEDS: Aspirin 81 MG TAB.CHEW PO (08:50)
[2017-11-24] MEDS: Multivitamins,Ther W-Minerals Tablet 1 TABLET PO (08:50)
[2017-11-24] MEDS: Nystatin Powder 15gm Bottle 1 APPLIC TOPICAL (08:50)
[2017-11-24] MEDS: Heparin Injection (Vial) 5,000 UNIT/ML VIAL 5000 UNIT SC (08:50)
[2017-11-24] MEDS: Clopidogrel Bisulfate 75 MG Tablet PO (08:51)
[2017-11-24] MEDS: Pantoprazole Sodium 40 MG Tablet PO (08:51)
[2017-11-24] MEDS: Lisinopril 10 MG Tablet PO (08:51)
--- NOTE | 2017-11-24 09:12 | PCM.DC ---
- Discharge Diagnoses Current Active Problems: Current Active and Chronic Problems Dyslipidemia (Chronic) GERD (gastroesophageal reflux disease) (Chronic) Chronic degenerative joint disease (Chronic) Chronic allergic rhinitis (Chronic) Stroke (Acute) Reason(s) for Visit for Discharge Instructions: Left sided paresthesias You will use the following diet at home:: Calorie/Carbohydrate Controlled (specify 1200, 1400, etc) Your food should be the consistency of: Regular Your liquids should be the consistency of: Regular/Thin Discharge Activity: Return to Normal Activity Additional Instructions: You should be on aspirin and plavix for 3 weeks, then switch to plavix alone. You should monitor your BP daily and follow-up with your primary care doctor within 2 weeks. You are being discharged with a 30 day event monitor. You will also receive a wheeled walker and a prescription for outpatient therapy. You will need a repeat blood work in 1 week to monitor for side-effect of the new BP medication - Lisinopril Allergies/Adverse Reactions: Allergies No Known Allergies Allergy (Verified 11/21/17 17:32) Medications to take at Discharge Cetirizine HCl [Allergy Relief] 10 mg PO DAILY PRN PRN 11/21/17 Ergocalciferol (Vitamin D2) [Drisdol] 50,000 unit PO MO 11/21/17 Montelukast [Singulair] 10 mg PO QHS 11/21/17 Multivit-Min/Iron/Folic/Lutein [Centrum Silver Women Tablet] 1 each PO DAILY 11/21/17 Nystatin Powder [Mycostatin Powder] 1 applic TOPICAL BID 11/21/17 Omeprazole 40 mg PO DAILY 11/21/17 Ubidecarenone [Coenzyme Q10] 300 mg PO DAILY 11/21/17 Acetaminophen [Tylenol] 1,000 mg PO Q8H PRN PRN #100 tab 11/24/17 Aspirin [Aspirin, Baby] 81 mg PO DAILY@0800 #30 tab.chew 11/24/17 Atorvastatin Calcium [Lipitor] 80 mg PO QHS #30 tab 11/24/17 Clopidogrel Bisulfate [Plavix] 75 mg PO DAILY #30 tab 11/24/17 Lisinopril [Zestril] 10 mg PO DAILY #30 tab 11/24/17 The following prescriptions were given: Acetaminophen [Tylenol] 1,000 mg PO Q8H PRN PRN #100 tab PRN Reason: Pain Aspirin [Aspirin, Baby] 81 mg PO DAILY@0800 #30 tab.chew Atorvastatin Calcium [Lipitor] 80 mg PO QHS #30 tab Clopidogrel Bisulfate [Plavix] 75 mg PO DAILY #30 tab Lisinopril [Zestril] 10 mg PO DAILY #30 tab Orders to be completed after discharge: 30-Day Event Recorder [[facility]] Location: None Selected Basic Metabolic Profile (BMP) Location: Laboratory Primary Care Physician: Oscar Roberts MD [Primary Care Provider] - Please follow up with your Primary Care Physician in: within 2 weeks Test Results: Test results from this visit will be discussed in further detail at your follow-up appointment, if applicable. Please Follow Up With: Cathleen Cabral MD When: within 2-3 weeks Please Follow Up With: Anthony Beasley MD When: in 4-6 weeks for holter monitor report Proposed Discharge Date: 11/24/17
--- NOTE | 2017-11-24 09:17 | PCM.DC.SUM ---
Discharge Date and Diagnosis Date of Admission: 11/21/17 Date of Discharge: 11/24/17 - Primary Discharge Diagnosis Active and Suspected Problems Stroke (Acute) Debility Hypertension - Secondary Discharge Diagnosis Chronic Problems Dyslipidemia (Chronic) GERD (gastroesophageal reflux disease) (Chronic) Chronic degenerative joint disease (Chronic) Chronic allergic rhinitis (Chronic) Hospital Course and Treatment Imaging Results: Clinical Impression(s) from Imaging Studies Brain CT 11/21/17 17:30 IMPRESSION: Normal unenhanced CT scan of the brain. Dr. Robbins communicated results to Dr. Riley at 6:04 p.m. N.B. : The above information has been verbally conveyed by Annmarie Robbins MD to Marvin Culver, on 11/21/2017 18:04:56 (ET). Electronically Signed: Annmarie Robbins MD at 18:05 EDT Tel , Service support , Chest X-Ray 11/21/17 17:32 IMPRESSION: Mild cardiac enlargement. No acute process. Electronically Signed: Annmarie Robbins MD at 19:20 EDT Tel , Service support , Head CTA 11/21/17 19:14 IMPRESSION: Normal ramona of Tao without demonstrated aneurysm or significant stenosis. Electronically Signed: Annmarie Robbins MD at 21:40 EDT Tel , Service support , Neck CTA 11/21/17 19:14 IMPRESSION: 1. Mild stenosis of the proximal left subclavian artery. 2. Marked tortuosity of the internal carotid arteries bilaterally. Carotid and vertebral arteries are otherwise unremarkable. Electronically Signed: Annmarie Robbins MD at 23:35 EDT Tel , Service support , Cervical Spine MRI 11/22/17 19:14 IMPRESSION: Technically limited MRI due to patient motion. Electronically Signed: Laura Tena MD at 12:01 EDT , Service support , Brain MRI 11/22/17 19:34 IMPRESSION: 1. Involutional changes of the brain, as described above. 2. Technically limited MRI due to patient motion. 3. Acute right thalamic infarct. N.B. : The above information has been verbally conveyed by Laura Tena MD to Marvin Cole on 11/22/2017 10:56:50 (ET). Electronically Signed: Laura Tena MD at 10:50 EDT , Service support , Neurology Operations: None Procedures: 2-D Echocardiogram Summary of Care Provided: The patient is a 77 year old F with medical history of arthritis, comes in with left-sided numbness and weakness. She had accompanying left-sided headache. Blood pressure on admission was 166/86. EKG was unremarkable. Labs were unremarkable. Chest x-ray showed mild cardiac enlargement but no acute process. Initial CT of the head was normal. Had an MRI of the brain that showed acute right thalamic stroke, managed on telemetry, started on aspirin and Plavix. Plan is for dual antiplatelet for 3 weeks and switching to Plavix. She was started on Lipitor 80 mg p.o. daily. CTA of the head and neck was negative. HbA1c was 5.9, LDL was 63. She was monitored overnight with no acute event. Seen by PT and OT. Recommended to have a wheeled walker. Patient was started on antihypertensive for blood pressure. She was discharged home with a 30 day event monitor to follow-up in the outpatient. Would also follow up with neurology. Discharge Diet: Low fat/ Low Cholesterol, 2000 mg Sodium Diet Discharge Activity: Return to Normal Activity Home Medications: Medications to take at Discharge Cetirizine HCl [Allergy Relief] 10 mg PO DAILY PRN PRN 11/21/17 Ergocalciferol (Vitamin D2) [Drisdol] 50,000 unit PO MO 11/21/17 Montelukast [Singulair] 10 mg PO QHS 11/21/17 Multivit-Min/Iron/Folic/Lutein [Centrum Silver Women Tablet] 1 each PO DAILY 11/21/17 Nystatin Powder [Mycostatin Powder] 1 applic TOPICAL BID 11/21/17 Omeprazole 40 mg PO DAILY 11/21/17 Ubidecarenone [Coenzyme Q10] 300 mg PO DAILY 11/21/17 Acetaminophen [Tylenol] 1,000 mg PO Q8H PRN PRN #100 tab 11/24/17 Aspirin [Aspirin, Baby] 81 mg PO DAILY@0800 #30 tab.chew 11/24/17 Atorvastatin Calcium [Lipitor] 80 mg PO QHS #30 tab 11/24/17 Clopidogrel Bisulfate [Plavix] 75 mg PO DAILY #30 tab 11/24/17 Lisinopril [Zestril] 10 mg PO DAILY #30 tab 11/24/17 Following Prescrptions Were Given to Patient: Acetaminophen [Tylenol] 1,000 mg PO Q8H PRN PRN #100 tab PRN Reason: Pain Aspirin [Aspirin, Baby] 81 mg PO DAILY@0800 #30 tab.chew Atorvastatin Calcium [Lipitor] 80 mg PO QHS #30 tab Clopidogrel Bisulfate [Plavix] 75 mg PO DAILY #30 tab Lisinopril [Zestril] 10 mg PO DAILY #30 tab Other Amb Orders: 30-Day Event Recorder [[facility]] Location: None Selected Basic Metabolic Profile (BMP) Location: Laboratory Primary Care Physician: Oscar Roberts MD [Primary Care Provider] - Please follow up with your Primary Care Physician in: within 2 weeks Please Follow Up With: Cathleen Cabral MD When: within 2-3 weeks Please Follow Up With: Anthony Beasley MD When: in 4-6 weeks for holter monitor report Disposition: Home Minutes spent on discharge:: 45 Patient Condition:: Stable Medical Necessity - Tobacco Use Smoking Status: Never smoker Meaningful Use Info Meaningful Use Diagnoses (Choose all that apply): None applicable Code Visit Inpatient E&M: 18796 Disch Hosp
[2017-11-24 10:10] VITALS: BMI 31.1
--- NOTE | 2017-11-24 10:37 | CASEMGMT ---
Addendum entered by La Salcedo 11/24/17 10:57: Fax to [facility] did not go through at this time but pt was already discharged. Call to PT at [facility] and pt is known to them and they state they will call pt to set up PT eval. Marialuisa DOBSON CM Original Note: Pt would like to go home with script for wheeled walker and outpt therapy. Script for WW faxed to [facility] per pt request and script for outpt therapy faxed to [facility] per pt request. Original scripts to pt at this time via Anuja DOBSON. Marialuisa DOBSON CM
== END 2017-11-24 10:29 | disposition home or self-care (01) | DRG 65 ==
LOC: ED 17:43 → PCU 19:32
PROVIDERS: Nurse Practitioner Family; Admitting Provider Internal Medicine; Emergency Provider Emergency Medicine; Family Provider Internal Medicine; PCP Internal Medicine; Visit Provider Internal Medicine
DX: I63.9 Cerebral infarction, unspecified (principal); G81.94 Hemiplegia, unspecified affecting left nondominant side; E78.5 Hyperlipidemia, unspecified; M47.896 Other spondylosis, lumbar region; M15.9 Polyosteoarthritis, unspecified; J30.9 Allergic rhinitis, unspecified; K21.9 Gastro-esophageal reflux disease without esophagitis; R27.0 Ataxia, unspecified; R20.2 Paresthesia of skin; R29.703 NIHSS score 3
CPT/HCPCS: 36415; 70450; 70496; 70498; 70551; 71045; 72141; 80048; 80061; 82306; 82607; 82962; 83036; 84443; 84484; 85025; 85610; 85652; 85730; 86140; 92526; 93005; 93306; 97162; 97166; 97530; 99285; J7030; Q9967; A4216

== ENCOUNTER → 2017-12-01 09:15 | Outpatient (CLI) | payer MEDICARE, OTHER, SELFPAY ==
[2017-12-01 10:27] LABS: Anion Gap 7 (5-15); BUN 12 mg/dL (7-18); BUN/Creat Ratio 18.8 RATIO (10-20); Calcium,Total 8.4 mg/dL (8.5-10.1); Chloride 94 mmol/L (98-107); Creatinine, Serum 0.64 mg/dL (0.55-1.02); EST Glomerular Filtration Rate 96 mL/min (>60); Est Glom Filt Rate - Afr Amer 116 mL/min (>60); Glucose 108 mg/dL (74-106); Potassium 4.1 mmol/L (3.5-5.1); Sodium Level 127 mmol/L (136-145)
== END ==
PROVIDERS: Family Provider Internal Medicine; PCP Internal Medicine; Referring Provider Internal Medicine; Visit Provider Internal Medicine
DX: T88.7XXA Unspecified adverse effect of drug or medicament, initial encounter (principal); T50.905A Adverse effect of unspecified drugs, medicaments and biological substances, initial encounter; Y92.9 Unspecified place or not applicable
CPT/HCPCS: 36415; 80048

== ENCOUNTER → 2018-01-21 16:04 | Outpatient (CLI) | payer MEDICARE, OTHER, SELFPAY ==
[2018-01-06 14:53] VITALS: BMI 31.4
[2018-01-21 18:25] LABS: Absolute Lymphocyte Count 1.46 X10^3/ul (0.83-4.51); Absolute Neutrophil Count 2.8 X10^3/uL (2.0-7.7); Basophil# 0.03 X10^3/uL; Basophil% 0.6 % (0-1); Eosinophils% 3.8 % (0-5); Hematocrit 35.4 % (37-47); Hemoglobin 11.7 g/dl (12.0-15.0); Lymphocyte # 1.46 X10^3/ul (4.0); Lymphocyte % 27.4 % (19-41); Mean Corp Hgb Conc 33.1 g/gl (32-36); Mean Corpuscular Hgb 29.5 pg (27.0-32.0); Mean Corpuscular Volume 89.2 fL (81-99); Monocyte# 0.81 X10^3/uL; Monocyte% 15.2 % (0-10); Neutrophil # 2.83 X10^3/uL (2.7-7.7); Platelet Count 341 K/mm3 (150-450); RBC Distribution Width CV 12.8 % (11.6-14.6); RBC Distribution Width SD 41.3 fl (35.1-43.9); Red Blood Count 3.97 M/mm3 (4.2-5.4); White Blood Count 5.3 K/mm3 (4.4-11.0)
[2018-01-21 18:27] LABS: POSITIVE COUNT NO; POSITIVE DIFFERENTIAL NO; POSITIVE MORPHOLOGY NO
[2018-01-21 18:34] LABS: CRP < 2.90 mg/L (0.0-3.0)
[2018-01-21 18:44] LABS: Erythrocyte Sedimentation Rate 25 mm/hr (0-30)
== END ==
PROVIDERS: Family Provider Internal Medicine; PCP Internal Medicine; Referring Provider Specialist; Visit Provider Specialist
DX: T84.033A Mechanical loosening of internal left knee prosthetic joint, initial encounter (principal)
CPT/HCPCS: 36415; 85025; 85652; 86140

== ENCOUNTER 2018-05-10 10:00 | Outpatient (RCR) | payer MEDICARE, OTHER, SELFPAY ==
--- NOTE | 2018-04-22 11:51 | HP.PTEVAL ---
Patient's Visit Information XUAN MARTINEZ is a 77 year old F referred to Physical Therapy by Oscar Roberts MD with a diagnosis of generalized weakness. Date of Evaluation: 04/22/18 Physical Therapist: Brent Bruce, KAYLAN, OCS, CSCS - Visit Plan Frequency: 2x /Week Duration: 4-6 Weeks Plan: 2x/week to supplement pool and classes and I elliptical and bike... 1. hip stab exercises on machines and gym and teach for HEP in gym I, also quad and HS strength. 2. quad and hip flexor rollout and stretch adn teach for HEP. 3. Balance with foam and weight shifts functionally and progress to I(Fw and side weight shifts) - Subjective Findings: Need to get stronger. Wears B ankle brace but got new one orthotics last year and wore it 8 months and L knee started hurting. Now ears L knee brace. Ankle braces are hard black plastic in nature giving lateral support. Ankles hurt and locked up if not wearing braces so went back to large ankle braces. Sleeping well. Did elliptical 20 minutes today and felt better in knee afterwards. Did 10 minutes on bike also. Also does some water therapy and class 2 days per week when healthy but hasn't been able to recently. Also can do some machines for legs. But cannot walk without L knee brace. Has script for [facility] for new knee brace. Also will have them check her AFOs to see if they can be more comfortable. is in hospital and she is doing everything at home she needs to but has some knee pain, some L foot pain. Wants to be stronger to walk better adn clean house. Has cane and walker and is using cane but wants to walk without it. Slow and labored withotu cane. Is cooking at home. Kids get her housecleaning so she does not have to do that. Elpidio feels off due to L knee. No falls recently but scared of falling. - Pain L knee Pain Intensity (Out of 10): 2 Pain Intensity Range: 0, 6 Comment: comfy at rest. - Objective Walks with slightly wide JOHNSON and slight R trendelenberg. Safer with cane but OK on firm flat surfaces without it. Trasnfers with UE I. Steps are ascending with one rail recip adn descending p[referring L but more comfortable with R and needs two rails. Bed trasnfers I.Pt takes short steps and does not extend hip at all with gait. R hip weak at 4- abd and ext vs 4 on L. hip flexion R 3+ and L 4-. Knee ext 4- B but slight pain on L with brace on. HSC 3+ B and pain L. Ankle movement is 3+ stregnth and WFL ROM although it is limited in PF adn to 3 degrees DF. B. AFOs in place today but can do heel raise and toe raise with effort. Sensation LE WNL to gross light touch. 2/3 patella and achilles reflexes. Quads and hip flexors max tight. Romberg eo and ec 30 seconds, foam eo 30 sec adn ec 8. Feet collapse into pes planus position without braces and loses lateral stability. No pain today with B AFOS and L knee brace on except with L knee MMT testing and slightly descending on steps. - Balance Scores Functional Gait Assessment Score: 20 % Disability: 33.3400 - Goals Goal 1:: I approp HEP for B hip stabs, qud and hip flexor stretches adn balance Goal Time Frame: 4-6 Weeks Goal 2:: Patient feel 75% improvement in gait without increasing pain. Goal Time Frame: 4-6 Weeks Goal 3:: Ascend and descend steps reciprocal with one rail Goal Time Frame: 4-6 Weeks Goal 4:: FGA score 23/30 to improve safety. Goal Time Frame: 4-6 Weeks - Rehabilitation Potential Physical Therapy Diagnosis: Weakness and tightness effecting gait and balacne. Pt has good attitude of learning correct ex and then doing on own consistently. Rehabilitation Potential: Fair - Anticipated Interventions Patient/Client Instruction: Educate patient on: Condition, Plan of Care For the Purpose of:: To decrease pain, To increase ROM, To improve muscle performance and motor function, To improve balance Therapeutic Exercise to Include: Strength training, Balance training, Flexibilty training, Gait and locomotor training For the Purpose of:: To improve balance, To improve safety Manual Therapy Techniques to Include: Soft tissue mobilization For the Purpose of:: To increase ROM Thank you for the opportunity to evaluate your patient. For Medicare and Medicare HMO plans, please review the plan of care and approve it. It will need to be FAXED BACK to us at [phone] for Medicare purposes. For Medicare only, by signing this I certify the plan of care. Please let me know if there are questions or concerns regarding this plan of care. Physician Signature: Date:
--- NOTE | 2018-07-12 14:38 | HP.PT.NRP ---
HP - Discharge Summary (1) - Patient Information XUAN MARTINEZ was seen in my office for initial evaluation on 04/22/18. The following Plan of Care was established for this patient: Initial Frequency: 2x /Week Initial Duration: 4-6 Weeks - Anticipated Interventions Patient/Client Instruction: Educate patient on: Condition, Plan of Care For the Purpose of:: To decrease pain, To increase ROM, To improve muscle performance and motor function, To improve balance Therapeutic Exercise to Include: Strength training, Balance training, Flexibilty training, Gait and locomotor training For the Purpose of:: To improve balance, To improve safety Manual Therapy Techniques to Include: Soft tissue mobilization For the Purpose of:: To increase ROM This patient was last seen in our office 05/10/18. Pertinent comments regarding their Physical therapy will appear below: Pt seen 5 visits of her plan of care. She has not needed therapy nor attended any further visits. at this point, it has been over two months and I will discontinue due to nonattendance. At this point I will be discontinuing this patient from physical therapy. I would be happy to see this patient again in the future if found appropriate by the physician. Thank you! Brent Bruce, DPT, OCS, CSCS
--- NOTE | 2018-07-12 14:47 | HP.PTDCNRP_ITS ---
HP - Discharge Summary (1) - Patient Information XUAN MARTINEZ was seen in my office for initial evaluation on 04/22/18. The following Plan of Care was established for this patient: Initial Frequency: 2x /Week Initial Duration: 4-6 Weeks - Anticipated Interventions Patient/Client Instruction: Educate patient on: Condition, Plan of Care For the Purpose of:: To decrease pain, To increase ROM, To improve muscle perfo rmance and motor function, To improve balance Therapeutic Exercise to Include: Strength training, Balance training, Flexibilty training, Gait and locomotor training For the Purpose of:: To improve balance, To improve safety Manual Therapy Techniques to Include: Soft tissue mobilization For the Purpose of:: To increase ROM This patient was last seen in our office 05/10/18. Pertinent comments regarding their Physical therapy will appear below: Pt seen 5 visits of her plan of care. She has not needed therapy nor attended any further visits. at this point, it has been over two months and I will discontinue due to nonattendance. At this point I will be discontinuing this patient from physical therapy. I would be happy to see this patient again in the future if found appropriate by the physician. Thank you! Brent Bruce, DPT, OCS, CSCS
== END 2018-05-10 19:00 | disposition home or self-care (01) ==
LOC: PT 10:00
PROVIDERS: Family Provider Internal Medicine; PCP Internal Medicine; Referring Provider Internal Medicine; Visit Provider Internal Medicine
DX: R26.9 Unspecified abnormalities of gait and mobility (principal); M62.81 Muscle weakness (generalized)
CPT/HCPCS: 97110; 97140; 97162

== ENCOUNTER → 2018-12-09 10:42 | Outpatient (CLI) | payer MEDICARE, OTHER, SELFPAY ==
--- NOTE | 2018-12-09 10:50 | RAD_ITS ---
STUDY: X-RAY - LEFT KNEE REASON FOR EXAM: Knee pain for 5 months. TECHNIQUE: 4 view(s) of the knee. COMPARISON: None. FINDINGS: There is a left total knee arthroplasty with marked tibiotalar anterior subluxation. There is a joint effusion. 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 Electronically Signed: Stephen Rodriguez MD at 11:44 EDT Tel , Service support ,
--- NOTE | 2018-12-09 11:13 | RAD_ITS ---
STUDY: X-RAY - LEFT KNEE REASON FOR EXAM: Reduction of left total knee arthroplasty. TECHNIQUE: 1 view of the knee before and after bracing. COMPARISON: Earlier radiographs today. FINDINGS: There is decreased anterior tibiofibular subluxation of the left total knee arthroplasty following reduction. Electronically Signed: Stephen Rodriguez MD at 11:57 EDT Tel , Service support , RAD/Knee 1 or 2 Views
== END ==
PROVIDERS: Family Provider Internal Medicine; PCP Internal Medicine; Referring Provider Orthopaedic Surgery; Visit Provider Orthopaedic Surgery
DX: Z96.652 Presence of left artificial knee joint (principal); M25.569 Pain in unspecified knee
CPT/HCPCS: 73560; 73564

== ENCOUNTER → 2019-12-27 08:14 | Outpatient (CLI) | payer MEDICARE, OTHER, SELFPAY ==
[2019-12-23 10:53] VITALS: BMI 31.4
[2019-12-27 08:15] VITALS: PULSE 64; PULSE 67; PULSE 70; PULSE 73; PULSE 81; PULSE 84; PULSE 90; PULSE 94; O2SAT 86; O2SAT 92; O2SAT 94; O2SAT 96; O2SAT 97; O2SAT 99
--- NOTE | 2019-12-27 08:45 | RAD_ITS ---
STUDY: X-RAY CHEST REASON FOR EXAM: Female, 79 years old. SOB, WORSE WALKING X COUPLE WEEKS TECHNIQUE: PA and lateral views of the chest. COMPARISON: Comparison is made with prior study dated 11/21/2017. FINDINGS: Since prior study, there is minimal A progression of increased interstitial markings with areas of confluence more prominent in the peripheral aspect of the right lung. This is suggestive of chronic interstitial fibrosis. There is no demonstrated pleural abnormality. Normal size heart. Normal mediastinum and camilo. Normal visualized pulmonary arteries. There is atherosclerotic calcification of the aortic arch with tortuosity. There are diffuse degenerative changes of the visualized thoracic spine. Increased kyphosis. Dextroscoliosis of the lumbar spine. Normal visualized ribs, clavicles, and shoulders. There is no demonstrated abnormality of the visualized soft tissue structures of the upper abdomen. RAD/Chest PA and Lateral IMPRESSION: Progressive increase in tissue markings in both lungs worse in the lateral aspect of the right hemithorax with areas of confluence suggestive progressive interstitial scarring. Electronically Signed: Dirk Warner, at 8:50 EDT , Service support ,
--- NOTE | 2019-12-27 09:05 | CPS ---
Patient states she does not wear oxygen at all at home. Test was started on RA. At the 1 minute leeroy, patients oxygen saturations dropped to 86%, therefore test was stopped and 2L of oxygen added. Once patient recovered, oxygen saturations increased to 96% before test resumed. The duration of the test was completed on 2L and patients oxygen saturations remained above 90%.
--- NOTE | 2019-12-28 09:14 | PCM.PSN.6M ---
PSN 6 Minute Walk Test - 6 Minute Walk Test 6 Minute Walk Test: 6 Minute Walk Test PSN:6-Minute Walk Test Start: 12/27/19 09:01 Freq: Status: Active Protocol: [id number].6MINW Document 12/27/19 08:15 (Rec: 12/27/19 09:08 [id number]) 6 Minute Walk Test Date Performed 12/27/19 Time Performed 08:15 Height 4 ft 9 in Weight: 142 lb Weight in Pounds 142.[address]: Won Chadwick FIO2 (% Oxygen) 21 Assistive device used: Cane Pre-test Oxygen Delivery Method Room Air Pulse Ox (%) 94 Pulse Rate (60-100 beats/min) 67 Dyspnea Barry Scale (0-10) 0 Exertion Barry Scale (6-20) 6 1st minute Oxygen Delivery Method Room Air Pulse Ox (%) 86 Pulse Rate (60-100 beats/min) 81 2nd minute Oxygen Flow Rate (L/min) (L/min) 2 Oxygen Delivery Method Nasal Cannula Pulse Ox (%) 96 Pulse Rate (60-100 beats/min) 90 3rd minute Oxygen Flow Rate (L/min) (L/min) 2 Oxygen Delivery Method Nasal Cannula Pulse Ox (%) 97 Pulse Rate (60-100 beats/min) 94 4th minute Oxygen Flow Rate (L/min) (L/min) 2 Oxygen Delivery Method Nasal Cannula Pulse Ox (%) 92 Pulse Rate (60-100 beats/min) 84 5th minute Oxygen Flow Rate (L/min) (L/min) 2 Oxygen Delivery Method Nasal Cannula Pulse Ox (%) 96 Pulse Rate (60-100 beats/min) 64 6th minute Oxygen Flow Rate (L/min) (L/min) 2 Oxygen Delivery Method Nasal Cannula Pulse Ox (%) 96 Pulse Rate (60-100 beats/min) 73 Post-test Oxygen Flow Rate (L/min) (L/min) 2 Oxygen Delivery Method Nasal Cannula Pulse Ox (%) 99 Pulse Rate (60-100 beats/min) 70 Dyspnea Barry Scale (0-10) 1 Exertion Barry Scale (6-20) 12 Full Laps Walked 9 Partial Lap, Number of Tiles Walked 0 Total Distance Walked (ft) 531 12/27/19 09:05 Cardiopulmonary Services by Michell Meredith Patient states she does not wear oxygen at all at home. Test was started on RA. At the 1 minute leeroy, patients oxygen saturations dropped to 86%, therefore test was stopped and 2L of oxygen added. Once patient recovered, oxygen saturations increased to 96% before test resumed. The duration of the test was completed on 2L and patients oxygen saturations remained above 90%. Initialized on 12/27/19 09:05 - END OF NOTE - Interpretation Interpretation: The patient ambulated 531 feet over the course of 6 minutes beginning on room air with the use of a cane. Pretesting oxygen saturation was noted to be 94% on room air. With ambulation, the alfredo oxygen saturation was 86%. 2 L/min of supplemental oxygen was applied, and the patient was able to complete the remainder of the test while maintaining appropriate oxygen saturations. - Recommendations Recommendations: 2 L/min of supplemental oxygen should be utilized with exertion.
== END ==
PROVIDERS: PCP Internal Medicine; Referring Provider Internal Medicine Critical Care Medicine; Visit Provider Internal Medicine Critical Care Medicine
DX: J98.6 Disorders of diaphragm (principal); R06.00 Dyspnea, unspecified
CPT/HCPCS: 71046; 94618

== ENCOUNTER → 2019-12-29 08:16 | Outpatient (CLI) | payer MEDICARE, OTHER, SELFPAY ==
[2019-12-23 10:53] VITALS: BMI 31.4
--- NOTE | 2019-12-30 10:28 | PFT ---
INTRODUCTION: The patient is a 79-year-old female that presents for pulmonary function studies secondary to a diagnosis of dyspnea on exertion. Respiratory therapy reports good patient effort. Bronchodilators were used during testing. INTERPRETATION: Forced expiration spirometry demonstrates no evidence of a large airways obstructive ventilatory defect. There was no significant response to aerosolized bronchodilators. Spirograms are of fair quality and plateau normally. Body plethysmography was performed and reveals lung volumes to be within normal limits. Diffusing capacity by single breath CO is significantly reduced at 40% of predicted. IMPRESSION: Isolated reduction in diffusing capacity, which could be related to an underlying pulmonary vascular disorder such as pulmonary hypertension. Correlation is recommended.
== END ==
PROVIDERS: PCP Internal Medicine; Referring Provider Internal Medicine Critical Care Medicine; Visit Provider Internal Medicine Critical Care Medicine
DX: R06.00 Dyspnea, unspecified (principal); J98.6 Disorders of diaphragm
CPT/HCPCS: 94060; 94726; 94729

== ENCOUNTER → 2020-01-06 07:39 | Outpatient (CLI) | payer MEDICARE, OTHER, SELFPAY ==
[2020-01-02 10:57] VITALS: BMI 31.4
--- NOTE | 2020-01-06 07:40 | CT_ITS ---
STUDY: CT CHEST WITHOUT CONTRAST REASON FOR EXAM: Female, 79 years old. PULMONARY FIBROSIS? SOB X 4 MONTHS. HI RES SERIES INCLUDED RADIATION DOSAGE (If Supplied By Facility): CTDIvol = ( 9.51 ) mGy, DLP = ( 218.25 ) mGycm TECHNIQUE: Transaxial imaging was performed without the administration of intravenous contrast material. Multiplanar coronal and sagittal images were reformatted. Individualized dose optimization techniques were used for this CT. COMPARISON: Comparison is made with prior study dated 09/19/2010. FINDINGS: There is evidence of diffuse increased interstitial markings in the right hemithorax more prominent in the right lower lobe. There is also evidence of increased interstitial markings in the left hemithorax although probably lesser degree. These changes have progressed as compared to prior study to just above the pulmonary fibrosis. There is no demonstrated pleural abnormality. There are calcifications of the coronary arteries. Small pericardial effusion. Normal mediastinum. Normal hilar regions. Normal unenhanced pulmonary arteries. There is atherosclerotic calcification of the aortic arch with tortuosity and elongation of the aortic arch and descending thoracic aorta. There are multi-level degenerative changes of the thoracic spine. There is no demonstrated abnormality of the visualized upper abdomen. CT/Chest without Contrast IMPRESSION: Findings suggestive of a progressive pulmonary fibrosis worse in the right hemithorax as compared to prior study. Small pericardial effusion. Coronary artery calcification. Electronically Signed: Dirk Warner, at 14:00 EDT , Service support ,
== END ==
PROVIDERS: PCP Internal Medicine; Referring Provider Internal Medicine Critical Care Medicine; Visit Provider Internal Medicine Critical Care Medicine
DX: J84.10 Pulmonary fibrosis, unspecified (principal)
CPT/HCPCS: 71250

== ENCOUNTER 2020-11-05 14:00 | Outpatient (RCR) | payer MEDICARE, OTHER, SELFPAY ==
[2020-01-02 10:57] VITALS: BMI 31.4
--- NOTE | 2020-08-30 13:56 | HP.PTEVAL_ITS ---
Patient's Visit Information XUAN MARTINEZ is a 79 year old F referred to Physical Therapy by TIMMY MARTINEZ with a diagnosis of H/O T12 COMPRESSION FRACTURE. Date of Evaluation: 08/30/20 Physical Therapist: Analisa Alfaro PT, Cert MDT - Visit Plan Frequency: 2-3x /Week Duration: 4-6 Weeks Plan: NUSTEP, BIKE AND CONSIDER TREADMILL. GAIT AND BALANCE TRAINING. POSTURE CORRECTION/STRENGTHENING, INSTRUCTION IN APPROPRIATE BODY MECHANICS AND ACTIVITY MODIFICATIONS. DLS WITH A NEUTRAL SPINE. NOAH LE ROM, STRETCHING AND STRENGTHENING. HEP INSTRUCTION. NO OVER-HEAD PRESS. NO LEG PRESS ON SHUTTLE OR SUPINE LEG PRESS. NO BENDING AND NO TWISTING. - Subjective Work/Leisure: LIVING ALONE IN [place]. HAS HELP AT HOME 2 TIMES A WEEK X 4 HOURS EA. Present symptoms: LOW BACK PAIN. WANTS TO KNOW WHAT EX'S WOULD BE GOOD FOR HER. Present since: FEB 2020. Pain Scale: WORST 8/10, LEAST 3/10. Currently: 8/10. Commenced as a result of: MISSED A STEP AND FELL AND GOT A T12 COMPRESSION FX. Worse: STANDING AND WALKING. Better: SITTING AND LYING DOWN. Disturbed sleep: NOT THAT MUCH EXCEPT WHEN GETS UP TO GO TO THE BATHROOM. Treatment this episode: PATIENT REPORTS SHE DID NOT HAVE THE PROCEEDURE DONE FOR HER FX DUE TO HER LUNG PROBLEM. Coughing/sneezing/straining: POSITIVE. Gait: PATIENT REPORTS SHE CAN'T WALK VERY FAR. IS ON OXYGEN 24 HOURS A DAY. 2 L OF O2 DURING THE DAY. 3 L AT NIGHT. 4 L WHEN SHE WALKS. Unexplained weight loss: NO. Imaging: FEB 2020 LUMBAR IMAGING - ACUTE COMPRESSION FX T12. BIBASILAR INTERSTITIAL THICKENING OF AIRSPACE DISEASE. MULTILEVEL DEGENERATIVE CHANGES WITH NEUROFORAMINAL AND SPINA L CANAL STENOSIS. DIFFUSE DECREASED BONY MINERALIZATION. MAR 2019 - SHOWED PROGRESSION OF THE T12 VERTEBRAL BODY COMPRESSION FX. JUNE 2020 T12 COMPRESSION FX UNCHANGED. THERE IS ABOUT 3MM OF RETROPULSION OF THE UPPER POSTERIOR ASPECT OF T12 VERTEBRA INTO THE SPINAL CANAL - STABLE. MILD TO MODERATE THORACIC AND LUMBAR CURVATURE. PMH: LUNG DZ, ARTHRITIS, HIGH CHOLESTEROL. RIGHT THR. R FEMOR ARA 2010 BUT TOOK IT OUT. NO CANCER. NO HEART ATTACK. MINI STROKE 2018. OTHER: PATIENT HAS FAMILY CHECKING ON HER REGULARLY. MEMBERSHIP HERE AT [facility]. CAME TO [facility] LAST NIGHT AND DID SOME OF THE EX MACHINES ON HER OWN. STATES SHE WAS DOING GYM MACHINES AT HER SON'S IN [place] BEFORE MOVING HOME. HER SON IS A NEUROSURGEON. PATIENT DRIVES. TRANSPORTING OXYGEN IS DIFFICULT. - Objective Sitting/Standing Posture: POOR. SCOLIOSIS. DECREASED LORDOSIS. INCREASED KYPHOSIS. Active Correction of posture: WORSE. Other Observations: PATIENT COMES TO PT TODAY WITHOUT AN ASSISTIVE DEVICE AND PULLING HER OXYGEN. SHE HAS AN O2 MONITOR AND SELF MONITORS. SHE IS ONLY ABLE TO WALK SHORT DISTANCES - ABOUT 50 FEET BEFORE O2 DECREASES. SHE WALKS WITH DECREASED CADANCE, DECREASED NOAH STRIDE LENGTH AND INCREASED TRUNK FLEXION. THIS PT TRANSPORTED HER BACK TO TREATMENT ROOM IN A WHEELCHAIR. O2 ON 4 L. SHE IS UE DEPENDENT TO TRANSFER FROM SIT TO STAND AND REVERSE. STANDING BALANCE IS GOOD. DYNAMIC BALANCE IS FAIR. PATIENT REPORTS SHE DOES USE A WALKER AT NIGHT. Motor deficit: NOAH UE AND LE STRENGTH GROSSLY 4/5 WITH MMT'ING. Sensory deficit: NOAH UE AND LE LIGHT TOUCH SENSATION APPEARS INTACT AND SYMMETRICAL. ROM deficit: NOAH UE'S AND LE'S WFL. Reflexes: NT. Lumbar mvmt loss: flex - MIN. ext - LEONIE. R SG - LEONIE. L SG - LEONIE. THORACIC ROTATION - NT. Core strength: POOR. OTHER: PATIENT DESCRIBES INDEP USE OF BIKE, NUSTEP. ALSO DESCRIBES DOING TREADMILL AND THERABAND EX'S A COUPLE MONTHS AGO WHEN SHE WAS LIVING WITH HER SON IN [place] WITH THE HELP OF A CHAINSTITCH BINDER OR PT. SHE REPORTS SHE WAS DOING GOOD WHEN SHE LEFT THERE BUT SINCE SHE HAS BEEN HOME IS HAVING INCREASED PAIN AND DIFFICULTY WALKING. THIS PT ASKED PATIENT TO BRING PICTURES OF THE EX'S GIVEN TO HER NEXT VISIT. SHE SAID SHE KNOWS MOST OF THEM. THIS PT WOULD RECOMMEND STARTING PT HERE AT [facility] WITH EX'S WITH A NEUTRAL SPINE. RECOMMENDED FOCUS ON STRENGTHENING VS US AND PATIENT AGREEABLE. SHE REPORTS SHE HAD SOME US TREATMENTS IN [place]. - Goals Goal 1:: DECREASE C/O BACK PAIN Goal Time Frame: 4-6 Weeks Goal 2:: IMPROVE STANDING, WALKING, PERSONAL CARE, SITTING, SOCIAL LIFE, TRAVEL AND HOMEMAKING FUNCTION Goal Time Frame: 4-6 Weeks Goal 3:: INSTRUCT IN PROPHYLAXIS AND PATIENT WILL BE INDEP WITH GYM AND HOME EX PROGRAMS FOR CONTINUED IMRPOVEMENT ONCE FORMAL PHYSICAL THERPAY CONCLUDES. Goal Time Frame: 4-6 Weeks Goal 4:: INDEP AND SAFE GAIT ON LEVEL SURFACES AND UP AND DOWN STEPS WITH LEAST ASSISTIVE DEVICE. Goal Time Frame: 4-6 Weeks - Anticipated Interventions Patient/Client Instruction: Educate patient on: Condition, Plan of Care, Risk Factors For the Purpose of:: To improve self management Therapeutic Exercise to Include: Strength training, Body mechanics, Postural training, Flexibilty training, Gait and locomotor training, Neuromotor development, In an aquatic setting, Dynamic Lumbar Stabilization, Scapular Strength/Stabilization For the Purpose of:: To decrease pain, To increase ROM, To improve muscle performance and motor function, To increase tolerance to activity/condition/position, To improve ability of physical actions for home/community/work/leisure, To improve gait and locomotor functions Thank you for the opportunity to evaluate your patient. For Medicare and Medicare HMO plans, please review the plan of care and approve it. It will need to be FAXED BACK to us at [phone] for Medicare purposes. For Medicare only, by signing this I certify the plan of care. Please let me know if there are questions or concerns regarding this plan of care. Physician Signature: Date:
--- NOTE | 2020-10-04 14:13 | HP.PTREVAL_ITS ---
TIMMY MARTINEZ, It has been my pleasure to treat XUAN MARTINEZ over the last 6 visits for H/O T12 COMPRESSION FRACTURE. Please see the progress note below for an update on the physical therapy plan of care! Subjective: WE RECEIVED A PHYSICAL THERAPY ORDER FOR AQUATIC THERAPY BUT PATIENT REPORTS SHE HAS HAD POOL THERAPY IN THE PAST AND SHE CAN DO IT ON HER OWN. PATIENT IS REFUSING AQUATIC THERAPY. SHE REPORTS SHE WANTS TO DO FLOOR EX'S AND THEY ARE HELPING. PATIENT REPORTS NEW ONSET OF RIGHT SHOULDER PAIN YESTERDAY AND SHE RELATES IT TO LIFTING HER O2 EVERYDAY AND SHE IS TRYING TO USE THE LEFT ARM MORE NOW. THIS PT INSTRUCTED PATIENT TO NOTIFY HER DOCTOR ABOUT THIS NEW PAIN AND SHE IS AGREEABLE. PATIENT REPORTS SHE IS FEELING ABOUT 50% IMPROVEMENT IN HER BACK PAIN SINCE STARTING PHYSICAL THERAPY. SHE REPORTS THE EX'S HAVE HELPED HER FEEL MORE STABLE IN HER BACK. AFTER DISCUSSING NEW PT ORDERS RECEIVED, PATIENT RECONSIDERED AND WANTS TO DO A FEW POOL EMERALD'TS WITH US AND THEN IF ABLE SHE WILL CONTINUE ON HER OWN. Objective/Function: PATIENT WAS SEEN TODAY FOR RE-ASSESSMENT OF PROGRESS TOWARD THE SET PT GOALS AND THE NEED FOR FURTHER PHYSICAL THERAPY VS READINESS FOR DISCHARGE. PATIENT IS MAKING SLOW PROGRESS TOWARD THE SET PT GOALS AND IS A GOOD CANDIDATE TO TRY AT LEAST A FEW AQUATIC THERAPY PT VISITS BEFORE ATTEMPING ON HER OWN. PATIENT WAS AGREEABLE TO SCHEDULING 4 AQUATIC THERAPY EMERALD'TS AND THEN 4 LAND EMERALD'TS BEFORE NEXT PT RE-CHECK. UPON EXAM TODAY: PATIENT COMES TO PT TODAY WITHOUT AN ASSISTIVE DEVICE AND PULLING HER OXYGEN. SHE DEMO'S THE ABILITY TO WALK APPROX 300 FEET ON LEVEL SURFACE IN THE CLINIC TODAY BEFORE NEEDING TO REST. SHE WALKS WITH DECREASED CADANCE, DECREASED NOAH STRIDE LENGTH AND INCREASED TRUNK FLEXION. O2 IS ON 2L OF O2 TODAY. SHE IS NOW ABLE TO TRANSFER FROM SIT TO STAND AND REVERSE WITHOUT THE USE OF HER UE'S. STANDING BALANCE IS GOOD. DYNAMIC BALANCE IS FAIR+. Motor deficit: NOAH UE AND LE STRENGTH GROSSLY 4/5 WITH MMT'ING EXCEPT RIGHT SHLD 3+/5 INTO ABD AND C/O PAIN WITH FULL ELEVATION OF RIGHT ARM. Sensory deficit: NOAH UE AND LE LIGHT TOUCH SENSATION APPEARS INTACT AND SYMMETRICAL. ROM deficit: NOAH UE'S AND LE'S WFL BUT R UE ELEVATION IS GUARDED AND WITH C/O PAIN IN SHLD. Lumbar mvmt loss: flex - MIN. ext - LEONIE. R SG - LEONIE. L SG - LEONIE. THORACIC ROTATION - NT. Core strength: POOR Plan Plan: MONITOR RIGHT SHLD PAIN AND AVOID EX'S THAT INCREASE RIGHT SHLD PAIN. POOL X 4 THEN LAND X 4 BEFORE F/U FOR RE-ASSESSMENT. NUSTEP, BIKE AND TREADMILL. GAIT AND BALANCE TRAINING. POSTURE CORRECTION/STRENGTHENING, INSTRUCTION IN APPROPRIATE BODY MECHANICS AND ACTIVITY MODIFICATIONS. DLS WITH A NEUTRAL SPINE. NOAH LE ROM, STRETCHING AND STRENGTHENING. HEP INSTRUCTION. NO OVER- HEAD PRESS. NO LEG PRESS ON SHUTTLE OR SUPINE LEG PRESS. NO BENDING AND NO TWISTING. Balance/Gait/Functional tests - Balance/Special Test Scores Oswestry Low Back Score: 22 Goals Goal 1:: DECREASE C/O BACK PAIN Goal Time Frame: 4-6 Weeks Goal Progress: Progressing Goal 2:: IMPROVE STANDING, WALKING, PERSONAL CARE, SITTING, SOCIAL LIFE, TRAVEL AND HOMEMAKING FUNCTION Goal Time Frame: 4-6 Weeks Goal Progress: Progressing Goal 3:: INSTRUCT IN PROPHYLAXIS AND PATIENT WILL BE INDEP WITH GYM AND HOME EX PROGRAMS FOR CONTINUED IMRPOVEMENT ONCE FORMAL PHYSICAL THERPAY CONCLUDES. Goal Time Frame: 4-6 Weeks Goal Progress: Progressing Goal 4:: INDEP AND SAFE GAIT ON LEVEL SURFACES AND UP AND DOWN STEPS WITH LEAST ASSISTIVE DEVICE. Goal Time Frame: 4-6 Weeks Goal Progress: Progressing Anticipated Interventions Patient/Client Instruction: Educate patient on: Condition, Plan of Care, Risk Factors For the Purpose of:: To improve self management Therapeutic Exercise to Include: Strength training, Body mechanics, Postural training, Flexibilty training, Gait and locomotor training, Neuromotor development, In an aquatic setting, Dynamic Lumbar Stabilization, Scapular Strength/Stabilization For the Purpose of:: To decrease pain, To increase ROM, To improve muscle performance and motor function, To increase tolerance to activity/condition/position, To improve ability of physical actions for home/community/work/leisure, To improve gait and locomotor functions Please do not hesitate to contact me at [phone] by phone or if you have questions or concerns regarding this new plan of care! Sincerely, Analisa Alfaro, PT, Cert MDT
--- NOTE | 2020-11-05 15:02 | HP.PTDCSUM_ITS ---
It has been my pleasure to treat XUAN MARTINEZ referred by TIMMY MARTINEZ, with the diagnosis of H/O T12 COMPRESSION FRACTURE for a total of 12 visit(s). Discharge Date: Please see the following information for a summary of their discharge status. Subjective: PATIENT REPORTS HER BACK IS A LOT BETTER. PATIENT REPORTS INCREASED LBP RIGHT NOW FROM WALKING ON THE TREADMILL FOR 10 MINUTES BEFORE THIS PT SESSION TODAY. PATIENT REPORTS SHE CAN DO HER BACK EX'S ON HER OWN NOW ON LAND AND IN THE WATER. STATES SHE SAW HER PCP FOR HER SHLD PAIN AND SHE THINKS HE IS GOING TO SEND A PT ORDER FOR THAT. Low Back Pain Intensity (Out of 10): 5 RIGHT SHOULDER Pain Intensity (Out of 10): 8 % Improvement: 80 Objective/Function: PATIENT WAS SEEN TODAY FOR RE-ASSESSMENT OF PROGRESS TOWARD THE SET PT GOALS AND THE NEED FOR FURTHER PHYSICAL THERAPY VS READINESS FOR DISCHARGE. PATIENT HAS MADE GOOD PROGRESS WITH PT FOR HER BACK AND IS AGREEABLE TO AND APPROPRIATE FOR DISCHARGE. UPON EXAM TODAY: PATIENT COMES TO PT TODAY WITHOUT AN ASSISTIVE DEVICE AND PULLING HER OXYGEN. SHE DEMO'S THE ABILITY TO WALK APPROX 150 FEET ON LEVEL SURFACE IN THE CLINIC TODAY BEFORE NEEDING TO REST. GAIT X APPROX 150 FEET X 2 INTO PT AND 150 FT X 2 OUT OF PT. SHE WALKS WITH DECREASED CADANCE, DECREASED NOAH STRIDE LENGTH AND INCREASED TRUNK FLEXION. O2 IS ON 4L OF O2 TODAY. PATIENT REPORTS SHE INCREASED IT FROM 2 TO 4 BECAUSE OF DOING THE TREADMILL AND THIS IS WHAT THE DOCTOR TOLD HER TO DO. SHE IS ABLE TO TRANSFER FROM SIT TO STAND AND REVERSE WITHOUT THE USE OF HER UE'S. STANDING BALANCE IS GOOD. DYNAMIC BALANCE IS FAIR+. Motor deficit: NOAH UE AND LE STRE NGTH IS GROSSLY 4/5 WITH MMT'ING EXCEPT RIGHT SHLD 3+/5 INTO ABD AND C/O PAIN WITH FULL ELEVATION OF RIGHT ARM. Sensory deficit: NOAH UE AND LE LIGHT TOUCH SENSATION APPEARS INTACT AND SYMMETRICAL. ROM deficit: NOAH UE'S AND LE'S WFL BUT R UE ELEVATION IS GUARDED AND WITH C/O PAIN IN SHLD. Lumbar mvmt loss: flex - MIN. ext - LEONIE. R SG - LEONIE. L SG - LEONIE. PATIENT REPORTS IT IS UNCOMFORTABLE TO DO THE LUMBAR ROM TESTING BUT NOT REALLY PAINFUL. THORACIC ROTATION - NT. Core strength: POOR. OTHER: PATIENT COMES TO PT WEARING A RIGHT EPICONDYLITIS BRACE TODAY. Goal 1:: DECREASE C/O BACK PAIN Goal Progress: Goal Met Goal 2:: IMPROVE STANDING, WALKING, PERSONAL CARE, SITTING, SOCIAL LIFE, TRAVEL AND HOMEMAKING FUNCTION Goal Progress: Progressing Goal 3:: INSTRUCT IN PROPHYLAXIS AND PATIENT WILL BE INDEP WITH GYM AND HOME EX PROGRAMS FOR CONTINUED IMRPOVEMENT ONCE FORMAL PHYSICAL THERPAY CONCLUDES. Goal Progress: Goal Met Goal 4:: INDEP AND SAFE GAIT ON LEVEL SURFACES AND UP AND DOWN STEPS WITH LEAST ASSISTIVE DEVICE. Goal Progress: Progressing Plan: D/C PT FOR BACK PAIN. PATIENT IS AGREEABLE. PATIENT IS GOING TO DISCUSS PT ORDER WITH PCP. If there are questions or concerns regarding this patient's physical therapy, please feel free to call me at [phone]. Thank you for the referral of this patient. Sincerely, Analisa Alfaro, PT, Cert MDT Balance/Gait/Functional tests - Balance/Special Test Scores Oswestry Low Back Score: 22
== END 2020-11-05 19:00 | disposition home or self-care (01) ==
LOC: PT 14:00
PROVIDERS: PCP Internal Medicine
DX: M54.16 Radiculopathy, lumbar region (principal); Z87.81 Personal history of (healed) traumatic fracture
CPT/HCPCS: 97110; 97113; 97162; 97164

== ENCOUNTER 2021-01-18 13:30 | Outpatient (RCR) | payer MEDICARE, OTHER, SELFPAY ==
--- NOTE | 2020-11-23 15:58 | HP.PTEVAL ---
Patient's Visit Information XUAN MARTINEZ is a 80 year old F referred to Physical Therapy by Dr. Oscar Roberts MD with a diagnosis of PAIN OF RIGHT SCAPULAR. Date of Evaluation: 11/23/20 Physical Therapist: Samy Myers PT, Cert MDT, OCS - Visit Plan Frequency: 2x /Week Duration: 4 Weeks Plan: WEAK PAINFULL RTC -SUNSCAPULARS/LONG HEAD. PT INTERVETIONS GRADED POSTURAL EX'S ,RTC/SCAPULAR STRENGTHENING,,ROM AND MODALTIES for pain - Subjective This 80 y/o female presents to physical therapy to physical therapy with pain of right scapular . Patient has right UT shoulder pain for ~ 6weeks. Patient has insidious onset of pain no injury maybe carrying 02 tank carry on 2L02 but ex's and walk with 4 L02. Recently, d/c for lumbar compression fracture. Aggravating raising arm , lifting affects ADLS' and housework tasks . Alleviating factors rest ,MEDS. Location UT to shoulder ,elbow. Location of pain right shoulder anterior UT. Pain affects sleeping . Denies paresthesia/tingling. Patient has walk in shower with shower chair. Patient will be using rollator at home. Patient has [employer] for cleaning, laundry and shoes. SOCIAL: - Pain Right Shoulder Pain Intensity (Out of 10): 8 Pain Intensity Range: 10 Right Scapula Pain Intensity (Out of 10): 9 Pain Intensity Range: 10 - Objective POSTURE: mild forward posture. GAIT: ambulates with 02 weeks. NEURO: denies paresthesia/tingling. PALAPTION: tender long head bicep groove ,anterior AC/CC, UT. AROM: shoulder flexion 130 degrees pain, abduction 90 degrees panful, ER 85 degrees, IR S1. PROM: shoulder flexion /abd 150 degrees. G-H JOINT: mild tightness capsular. MMT: infraspinatous/supraspinatous/subscapularis 3+/5 pain, deltoid 3+/5 pain. - Special Tests R Shoulder Lift Off Test - Subscapular Tear: Negative R Shoulder Drop Sign - IS Test: Negative R Shoulder Empty Can - SS: Positive R Shoulder Belly Press - SupScap: Positive R Shoulder Neer - Impingement: Positive R Shoulder Paulino Melchor - Impingement: Positive R Shoulder Shrug Sign - OA/Adhesive Capsulitis: Negative - Balance/Special Test Scores Quick DASH Score: 63.6350 - Goals Goal 1:: Patient to be I with HEP to improve function with ADLS' Goal Time Frame: 4-6 Weeks Goal 2:: Patient to demonstrate 50% improvement of shoulder pain with ADLS' Goal Time Frame: 4-6 Weeks Goal 3:: Patient to increase right shoulder ROM with shoulder flexion/abduction 140 degrees to improve ADLS to reach in cupboard Goal Time Frame: 4-6 Weeks Goal 4:: Patient to increase strength RTC and deltoid 4-/5 to improve function with ADLS' Goal Time Frame: 4-6 Weeks Goal 5:: Patient to improve quick dash by 5 points or > to improve QOL and function Goal Time Frame: 4-6 Weeks - Rehabilitation Potential Physical Therapy Diagnosis: Patient has right shoulder RTC pain and weakness subscapularis and long head bicep, supraspinatus with decrease ROM ,weakness ,tenderness and + Special test impairs ADLS' and housework tasks thus benefit from skilled PT Rehabilitation Potential: Good - Anticipated Interventions Patient/Client Instruction: Educate patient on: Condition, Plan of Care For the Purpose of:: To decrease pain, To increase ROM, To improve nutrient delivery to tissue, To increase oxygenation perfusion, To improve muscle performance and motor function, To improve ability to perform ADL's, To increase tolerance to activity/condition/position, To improve ability of physical actions for home/community/work/leisure, To improve health of tissue, To decrease soft tissue restriction, To increase flexibility/ROM, To assume or resume ADL's, To reduce risk of recurrence, To improve tolerance to ADL's Therapeutic Exercise to Include: Strength training, Postural training, Flexibilty training, Active ROM, Scapular Strength/Stabilization For the Purpose of:: To decrease pain, To increase ROM, To improve muscle performance and motor function, To improve ability to perform ADL's, To increase tolerance to activity/condition/position, To improve health of tissue, To decrease soft tissue restriction, To increase flexibility/ROM, To prevent re-injury TENS: Yes IF ES: Yes Cryotherapy (ice pack, ice massage): Yes Thermo therapy (hot pack): Yes Ultrasound (thermal/non thermal): Yes For the Purpose of:: To decrease pain, To increase ROM, To improve nutrient delivery to tissue, To increase oxygenation perfusion, To improve health of tissue, To decrease soft tissue restriction Thank you for the opportunity to evaluate your patient. For Medicare and Medicare HMO plans, please review the plan of care and approve it. It will need to be FAXED BACK to us at [phone] for Medicare purposes. For Medicare only, by signing this I certify the plan of care. Please let me know if there are questions or concerns regarding this plan of care. Physician Signature: Date:
--- NOTE | 2020-12-28 13:55 | HP.PTREVAL_ITS ---
Dr. Oscar Roberts MD, It has been my pleasure to treat XUAN MARTINEZ over the last 9 visits for PAIN OF RIGHT SCAPULAR. Please see the progress note below for an update on the physical therapy plan of care! Subjective: Patient reports better Objective/Function: POSTURE: mild forward posture, rounded shoulders. AROM SHOULDER : flexion 120 degrees ,abduction 100 degrees in scaption ,ER 80 degrees. MMT: subscapularis 4-/5,infraspinatous 3/5,supraspinatous 3+/5 with pain, deltoid lateral 3/5,anterior 3+/5 Plan Plan: CONT WITH POC 2XWEEK/ 4WEEKS. WEAK PAINFULL RTC -SUNSCAPULARS/LONG HEAD. PT INTERVETIONS GRADED POSTURAL EX'S ,RTC/SCAPULAR STRENGTHENING,,ROM AND MODALTIES for pain Balance/Gait/Functional tests - Balance/Special Test Scores Quick DASH Score: 50.0000 Goals Goal 1:: Patient to be I with HEP to improve function with ADLS' Goal Time Frame: 4-6 Weeks Goal Progress: Progressing Goal 2:: Patient to demonstrate 50% improvement of shoulder pain with ADLS' Goal Time Frame: 4-6 Weeks Goal 3:: Patient to increase right shoulder ROM with shoulder flexion/abduction 140 degrees to improve ADLS to reach in cupboard Goal Time Frame: 4-6 Weeks Goal Progress: Progressing Goal 4:: Patient to increase strength RTC and deltoid 4-/5 to improve function with ADLS' Goal Time Frame: 4-6 Weeks Goal Progress: Progressing Goal 5:: Patient to improve quick dash by 5 points or > to improve QOL and function Goal Time Frame: 4-6 Weeks Goal Progress: Progressing Anticipated Interventions Patient/Client Instruction: Educate patient on: Condition, Plan of Care For the Purpose of:: To decrease pain, To increase ROM, To improve nutrient delivery to tissue, To increase oxygenation perfusion, To improve muscle performance and motor function, To improve ability to perform ADL's, To increase tolerance to activity/condition/position, To improve ability of physical actions for home/community/work/leisure, To improve health of tissue, To decrease soft tissue restriction, To increase flexibility/ROM, To assume or resume ADL's, To reduce risk of recurrence, To improve tolerance to ADL's Therapeutic Exercise to Include: Strength training, Postural training, Fle xibilty training, Active ROM, Scapular Strength/Stabilization For the Purpose of:: To decrease pain, To increase ROM, To improve muscle performance and motor function, To improve ability to perform ADL's, To increase tolerance to activity/condition/position, To improve health of tissue, To decrease soft tissue restriction, To increase flexibility/ROM, To prevent re- injury TENS: Yes IF ES: Yes Cryotherapy (ice pack, ice massage): Yes Thermo therapy (hot pack): Yes Ultrasound (thermal/non thermal): Yes For the Purpose of:: To decrease pain, To increase ROM, To improve nutrient delivery to tissue, To increase oxygenation perfusion, To improve health of tissue, To decrease soft tissue restriction Please do not hesitate to contact me at [phone] by phone or if you have questions or concerns regarding this new plan of care! Sincerely, Samy Myers, PT, Cert MDT, OCS
--- NOTE | 2021-03-25 13:23 | HP.PTDCNRP_ITS ---
XUAN MARTINEZ was seen in my office for initial evaluation on 11/23/20. The following Plan of Care was established for this patient: Initial Frequency: 2x /Week Initial Duration: 4 Weeks Patient/Client Instruction: Educate patient on: Condition, Plan of Care For the Purpose of:: To decrease pain, To increase ROM, To improve nutrient delivery to tissue, To increase oxygenation perfusion, To improve muscle performance and motor function, To improve ability to perform ADL's, To increase tolerance to activity/condition/position, To improve ability of physical actions for home/community/work/leisure, To improve health of tissue, To decrease soft tissue restriction, To increase flexibility/ROM, To assume or resume ADL's, To reduce risk of recurrence, To improve tolerance to ADL's Therapeutic Exercise to Include: Strength training, Postural training, F lexibilty training, Active ROM, Scapular Strength/Stabilization For the Purpose of:: To decrease pain, To increase ROM, To improve muscle performance and motor function, To improve ability to perform ADL's, To increase tolerance to activity/condition/position, To improve health of tissue, To decrease soft tissue restriction, To increase flexibility/ROM, To prevent re-injury TENS: Yes IF ES: Yes Cryotherapy (ice pack, ice massage): Yes Thermo therapy (hot pack): Yes Ultrasound (thermal/non thermal): Yes For the Purpose of:: To decrease pain, To increase ROM, To improve nutrient delivery to tissue, To increase oxygenation perfusion, To improve health of tissue, To decrease soft tissue restriction This patient was last seen in our office . Pertinent comments regarding their Physical therapy will appear below: Patient was seen for PT for right scapular pain with RTC/scapular strengthening ,postural ex's and modalties. At this point I will be discontinuing this patient from physical therapy. I would be happy to see this patient again in the future if found appropriate by the physician. Thank you! Samy Myers, PT, Cert MDT, OCS Balance/Gait/Functional tests - Balance/Special Test Scores Quick DASH Score: [phone]
== END 2021-01-18 19:00 | disposition home or self-care (01) ==
LOC: PT 13:30
PROVIDERS: PCP Internal Medicine; Referring Provider Internal Medicine; Visit Provider Internal Medicine
DX: M25.511 Pain in right shoulder (principal)
CPT/HCPCS: 97035; 97110; 97162; 97530